=== PATIENT | female | born 1970 | race Caucasian/White ===

== ENCOUNTER 2016-10-09 16:38 | Inpatient (IN) ==
[2016-10-09] MEDS ORDERED: *HR* HYDROmorphone (PF) 1 MG/ML SYRINGE IVP ONE ×3 (16:54→18:42)
[2016-10-09] MEDS ORDERED: Ondansetron 4 MG/2 ML VIAL IVP ONE (16:54)
[2016-10-09] MEDS ORDERED: 0.9 % Sodium Chloride 1,000 ML IVC ONE (16:55)
--- NOTE | 2016-10-09 16:58 | Emergency Department Note ---
Disposition Clinical Impression: Acute pancreatitis Qualifiers: Pancreatitis type: unspecified pancreatitis type Acute pancreatitis complication: unspecified Qualified Code(s): K85.90 - Acute pancreatitis without necrosis or infection, unspecified Disposition: Admitted As Inpatient Condition: Fair Referrals: Ani Hilton CNP [Primary Care Provider] - Forms: Work/School Release, ED Satisfaction Letter Time of Disposition: 17:30 Abdominal Pain HPI - General Chief Complaint: ED Abdominal Pain Stated Complaint: pancreatitis seen last night Time Seen by Provider: 10/09/16 16:44 Source: patient Mode of arrival: ambulatory Limitations: no limitations Nursing Notes Reviewed: Yes Vital Signs Reviewed: Yes - History of Present Illness HPI Narrative: 46-year-old with a history of pancreatitis that is recurrent who comes in with increasing abdominal pain. Patient was essentially seen here last PM left AGAINST MEDICAL ADVICE. She was called back and encouraged to return however she returns tonight with pain. Pt Subjective Complaint: abdominal pain Onset (ago): day(s) Consistency: constant Location: epigastric Pain Scale: 10 Quality: cramping, aching Radiation: back Migration to: no migration Improves with: nothing Worsens with: nothing Associated symptoms: Reports: nausea - Related Data Home Medications Medication Instructions Recorded Confirmed Omeprazole [PriLOSEC] 40 mg PO DAILY 03/31/15 11/29/15 Paroxetine [Paxil] 60 mg PO DAILY 03/31/15 11/29/15 Ondansetron [Zofran] 8 mg PO Q4H PRN 11/29/15 11/29/15 Oxycodone HCl [Roxicodone 30 MG 30 mg PO Q6HR 11/29/15 11/29/15 Immed Release] Oxycodone HCl/Acetaminophen 1 each PO TID PRN 11/29/15 11/29/15 [Percocet 5-325 mg Tablet] Gabapentin 10/07/16 Ibuprofen 10/07/16 Tylenol 10/07/16 Previous Rx's Medication Instructions Recorded Levofloxacin [Levaquin] 500 mg PO DAILY #10 tablet 10/07/16 Ondansetron [Zofran ODT] 8 mg SL TID PRN #12 tab.rapdis 10/07/16 metroNIDAZOLE [Flagyl] 500 mg PO BID #14 tablet 10/07/16 Allergies Allergy/AdvReac Type Severity Reaction Status Date / Time promethazine [From Phenergan] Allergy Seizure Verified 10/07/16 12:55 All systems ED: reviewed and negative except as stated. Constitutional: Denies: fever, chills, weakness, weight change Eyes: Denies: eye pain, eye discharge, vision change ENT ED: Denies: ear pain, throat pain, dental pain, hearing loss, epistaxis, congestion, dysphagia Cardiovascular: Denies: chest pain, palpitations, dyspnea on exertion, edema, syncope Respiratory: Denies: cough, dyspnea, wheezes, hemoptysis, stridor Gastrointestinal: Reports: abdominal pain, nausea. Denies: vomiting, diarrhea, constipation, hematemesis, melena, hematochezia Genitourinary: Denies: dysuria, frequency, hematuria, discharge Musculoskeletal: Denies: back pain, neck pain, arthralgia, myalgia Integumentary: Denies: rash, abrasion, lesions Neurological: Denies: headache, weakness, numbness, paresthesias, confusion, abnormal gait, vertigo Psychiatric: Denies: anxiety, depression, suicidal thoughts, homicidal thoughts , auditory hallucinations, visual hallucinations Endocrine: Denies: fatigue Hematological/Lymphatic: Denies: easy bleeding, easy bruising Allergic/Immunologic: Denies: facial swelling, urticaria Abdominal Pain PMH - Past Medical History Medical history: Reports: GERD, other Female Surgical History: Reports: , cholecystectomy, other MDS NURSE history: Reports: no MDS NURSE history Psychiatric history: Reports: anxiety, bipolar, depression - Social History Smoking status: Current every day smoker Alcohol use: Reports: none Drug use: Reports: none Physical Exam - General Limitations: no limitations General appearance: alert, in no apparent distress - Head Head exam: atraumatic, normocephalic, normal inspection - Eye Eye exam: Present: normal appearance, PERRL, EOMI - ENT ENT exam: normal exam, normal oropharynx, mucous membranes moist - Neck Neck exam: Present: normal inspection, full ROM, trachea midline - Chest Chest inspection: Present: normal inspection, symmetric chest wall rise - Respiratory Respiratory exam: Present: normal lung sounds bilaterally - Cardiovascular Cardiovascular exam: Present: regular rate, normal rhythm, normal heart sounds - Abdominal Exam Abdominal exam: Present: tenderness. Absent: guarding, rebound Abdominal tenderness: Present: epigastrium - Extremities Exam Extremities exam: Present: normal inspection, full ROM. Absent: tenderness, pedal edema - Expanded Lower Extremity Exam Neurovascular/Tendon exam: Absent: motor deficit, sensory deficit, tendon deficit Gait: observed and normal - Back Exam Back exam: Present: normal inspection, full ROM. Absent: tenderness - Neurological Exam Neurological exam: Present: alert, oriented X3 - Psychiatric Psychiatric exam: Present: normal affect, normal mood - Skin Skin exam: Present: warm, dry, intact, normal color Course - Reevaluation(s) Reevaluation #1: 46-year-old comes in with severe pain related to acute on chronic pancreatitis. Patient will be admitted. Time: 17:29 - Consultations Consultation #1: Discussed with Dr. Daniel, admit. Time: 17:29 Vital Signs Temperature 97.6 F 10/09/16 16:39 Pulse Rate 77 10/09/16 16:39 Respiratory Rate 18 10/09/16 16:39 Blood Pressure 144/81 10/09/16 16:39 O2 Sat by Pulse Oximetry 99 10/09/16 16:39 Temperature 97.6 F 10/09/16 16:39 Pulse Rate 77 10/09/16 16:39 Respiratory Rate 18 10/09/16 16:39 Blood Pressure 144/81 10/09/16 16:39 O2 Sat by Pulse Oximetry 99 10/09/16 16:39 Oxygen Delivery Oxygen Delivery Room Air Abdominal Pain - Lab Data Lab results reviewed: Yes I reviewed the patient's lab results. Result diagrams: 10/09/16 17:10 10/09/16 17:10 Lab Results 10/09/16 10/09/16 Range/Units 17:10 17:10 WBC 8.0 (4.3-11.1) K/mcL RBC 3.74 L (3.82-4.97) M/mcL Hgb 12.5 (11.5-15.4) g/dL Hct 37.5 (35.3-44.9) % MCV 100.3 H (83.0-100.0) fL MCH 33.4 H (28.0-33.3) pg MCHC 33.3 (31.6-35.5) g/dL RDW 15.4 H (11.5-14.5) % Plt Count 292 (140-400) K/mcL MPV 9.1 L (9.4-12.4) fL Immature Gran % 0.4 (0-4) % Seg Neutrophils % 57.1 % Lymphocytes % 34.7 % Monocytes % 4.9 % Eosinophils % 2.4 % Basophils % 0.5 % Neutrophils # 4.5 (1.6-8.9) K/mcL Lymphocytes # 2.8 (0.6-4.6) K/mcL Monocytes # 0.4 (0.0-1.3) K/mcL Eosinophils # 0.2 (0.0-0.6) K/mcL Basophils # 0.0 (0.0-0.2) K/mcL Sodium 140 (136-145) mEq/L Potassium 3.1 L (3.5-4.5) mEq/L Chloride 112 H (98-109) mEq/L Carbon Dioxide 19 (19-29) mEq/L BUN 2 L (7-20) mg/dL Creatinine 0.54 L (0.57-1.11) mg/dL Est GFR ( Amer) > 60 (> 60) Est GFR (Non-Af Amer) > 60 (> 60) BUN/Creatinine Ratio 4 L (6-26) Glucose 114 H (70-99) mg/dL Calculated Osmolality 287 (280-300) Calcium 8.5 L (8.6-10.8) mg/dL Total Bilirubin 0.5 (0.2-1.2) mg/dL Direct Bilirubin 0.3 (0.0-0.5) mg/dL Indirect Bilirubin 0.2 (0.0-1.2) mg/dL AST 64 H (5-34) Units/L ALT 129 H (0-55) Units/L Alkaline Phosphatase 314 H (38-126) Units/L Serum Total Protein 6.1 (6.0-8.3) g/dL Albumin 2.6 L (3.5-5.0) g/dL Globulin 3.5 (2.4-3.5) g/dL Albumin/Globulin Ratio 0.7 L (1.1-2.2) Amylase 19 L (25-125) Units/L Lipase < 10 (8-78) Units/L
[2016-10-09 17:16] LABS: Basophils % 0.5 %; Eosinophils # 0.2 K/mcL (0.0-0.6); Eosinophils % 2.4 %; Hematocrit 37.5 % (35.3-44.9); Hemoglobin 12.5 g/dL (11.5-15.4); Immature Granulocytes % 0.4 % (0-4); Lymphocytes # 2.8 K/mcL (0.6-4.6); Lymphocytes % 34.7 %; Mean Corpuscular HGB Conc 33.3 g/dL (31.6-35.5); Mean Corpuscular Hemoglobin 33.4 pg (28.0-33.3); Mean Corpuscular Volume 100.3 fL (83.0-100.0); Mean Platelet Volume 9.1 fL (9.4-12.4); Monocytes # 0.4 K/mcL (0.0-1.3); Monocytes % 4.9 %; Neutrophils # 4.5 K/mcL (1.6-8.9); Platelet Count 292 K/mcL (140-400); Red Blood Count 3.74 M/mcL (3.82-4.97); Red Cell Distribution Width 15.4 % (11.5-14.5); Segmented Neutrophils % 57.1 %
[2016-10-09 17:30] LABS: Alanine Aminotransferase 129 Units/L (0-55); Albumin 2.6 g/dL (3.5-5.0); Albumin/Globulin Ratio 0.7 (1.1-2.2); Alkaline Phosphatase 314 Units/L (38-126); Amylase 19 Units/L (25-125); Aspartate Amino Transferase 64 Units/L (5-34); BUN/Creatinine Ratio 4 (6-26); Bilirubin,Direct 0.3 mg/dL (0.0-0.5); Bilirubin,Indirect 0.2 mg/dL (0.0-1.2); Bilirubin,Total 0.5 mg/dL (0.2-1.2); Calcium 8.5 mg/dL (8.6-10.8); Carbon Dioxide 19 mEq/L (19-29); Chloride 112 mEq/L (98-109); Globulin 3.5 g/dL (2.4-3.5); Glucose 114 mg/dL (70-99); Osmolality,Calculated 287 (280-300); Potassium 3.1 mEq/L (3.5-4.5); Sodium 140 mEq/L (136-145); Total Protein 6.1 g/dL (6.0-8.3); eGFR For African Americans > 60 (> 60); eGFR For Non-African Americans > 60 (> 60)
[2016-10-09 17:33] LABS: Blood Urea Nitrogen 2 mg/dL (7-20); Lipase < 10 Units/L (8-78)
[2016-10-09] MEDS ORDERED: Ondansetron ODT 4 MG TAB.RAPDIS PO PRN (20:57)
[2016-10-09] MEDS ORDERED: Naloxone 0.4 MG/ML INJ IVP PRN (20:58)
[2016-10-09] MEDS ORDERED: *HR* Morphine 2 MG/ML SYRINGE IVP PRN (20:58)
[2016-10-09] MEDS ORDERED: *HR* HYDROmorphone (PF) 1 MG/ML SYRINGE IVP PRN (20:58)
--- NOTE | 2016-10-09 21:06 | Internal Med History&Physical ---
Date of Encounter: 10/09/16 Time of Encounter: 21:04 Assessment and Plan (1) Acute on chronic pancreatitis Current visit: No Status: Acute IVF, IV morphine,dilaudid for pain, NPO for now, follow symptoms, (positive pain and positive abdominal imaging of acute pancreatitis) (2) GERD (gastroesophageal reflux disease) Current visit: No Status: Chronic continue med Qualifiers: Esophagitis presence: esophagitis presence not specified Qualified Code(s) : K21.9 - Gastro-esophageal reflux disease without esophagitis (3) Oral thrush Current visit: No Status: Acute partially treated, continue fluconazole, check HIV - consent provided by patient Internal Medicine - H&P: HPI Chief complaint: abdo pain History of present illness: Ms. Chi is a 46 year old female who presents with acute on chronic pancreatitis flare. She reported 1 week hx of worsening abdominal pain associated with anorexia and decreased PO intake, nausea. Pain in the epigastric region, described as stabbing with radiation to the back, rated 10/ 10. She was seen in the ED yesterday but because of the long wait for bed, left AMA. She came in here for persistent and worsening symptoms. She denies a hx of alcholism. On review, she reports that she was seen at local urgent care with prescription of a course of diflucan for oral thrush - tongue white. She has taken 2 days of the medication. Past Med Surg Social Fam HX - Past Medical History Medical history: GERD, other Psychiatric history: anxiety, bipolar, depression - Past Surgical History Surgical History: , cholecystectomy - Social History Smoking Status: Current every day smoker Packs per day: 3 Smokeless Tobacco Status: No Alcohol use: none Drug use: none - Family History Father Adopted: No Family Member Ethnicity: Non- Living Status: Mother Adopted: No Family Member Ethnicity: Non- Living Status: Still Living Hx Family Cardiac Disorders: Yes Hx Family Respiratory Disorders: No Hx Family Cancer: No Hx Family GI Disorders: No Hx Family Endocrine Disorder: Yes Hx Family Neuromuscular Disorders: No Internal Medicine - H&P: Meds Omeprazole [PriLOSEC] 40 mg PO DAILY 03/31/15 [History] Paroxetine [Paxil] 60 mg PO DAILY 03/31/15 [History] Ondansetron [Zofran] 8 mg PO Q6H PRN 11/29/15 [History] Gabapentin [Neurontin] 800 mg PO TID 10/07/16 [History] Levofloxacin [Levaquin] 500 mg PO DAILY #10 tablet 10/07/16 [Rx] metroNIDAZOLE [Flagyl] 500 mg PO BID #14 tablet 10/07/16 [Rx] Albuterol Sulfate [Ventolin Hfa] 2 puff IH Q4H PRN 10/09/16 [History] Ascorbate Calcium [Vitamin C] 500 mg PO DAILY 10/09/16 [History] Pramipexole [Mirapex] 2 mg PO HS PRN 10/09/16 [History] Ranitidine HCl [Acid Case Management Assistant] 150 mg PO HS 10/09/16 [History] Allergies promethazine [From Phenergan] Allergy (Verified 10/07/16 12:55) Seizure All Systems PM: A 10-system review of systems was performed and is negative for pertinent findings except as documented above in the HPI. Review of systems: ROS 14 point review of systems reviewed as best as possible given presentation. Pertinent positive or negative as per HPI or otherwise reviewed as negative - Constitutional Vitals: Temp Pulse Resp BP Pulse Ox 97.9 F 90 16 127/75 96 10/09/16 20:13 10/09/16 20:13 10/09/16 20:13 10/09/16 20:13 10/09/16 20:13 Exam: General - AAO x 3 Psych - Appropriate affect/speech. No agitation Eyes - JOSUE. Eye lids intact. No scleral icterus ENT - Oral mucosa pink, dentition intact. External ear clear/dry/intact. No thyromegaly Lymphatics - No cervical/inguinal lympadenopathy Neuro - No gross peripheral or central neuro deficits with intact CN 2-12 exam Heart - Sinus. RRR. S1 and S2 present. No added HS/murmurs appreciated. No elevated JVD appreciated. No calf swellings/erythema Lung - Adequate air entry b/l, No crackes/wheezes appreciated GI - epigastric pain, guarding on palpation. No hepatosplenomegaly/ascites. BS+ - No CVA/suprapubic tenderness or palpable bladder distension Skin - Intact. No rash/petechiae/ecchymosis. Warm extremities MSK - Joints with normal ROM. No joint swellings Internal Med - H&P Results - Labs CBC & Chem 7: 10/09/16 17:10 10/09/16 17:10
[2016-10-09] MEDS: Gabapentin 400 MG CAPSULE PO SCH (21:25)
[2016-10-09] MEDS: Famotidine 20 MG TABLET PO SCH (21:26)
[2016-10-09] MEDS: Ringers Solution, Lactated 1,000 ML IVC SCH (21:27)
[2016-10-09] MEDS: Nicotine 21 MG PATCH.TD24 TD SCH (21:31)
[2016-10-09] MEDS: *HR* Morphine 2 MG/ML SYRINGE IVP PRN (22:26)
[2016-10-10] MEDS: *HR* HYDROmorphone (PF) 1 MG/ML SYRINGE IVP PRN ×3 (01:53→10:16)
[2016-10-10] MEDS: Ondansetron 4 MG/2 ML VIAL IVP PRN ×2 (01:58→10:24)
[2016-10-10] MEDS: Ringers Solution, Lactated 1,000 ML IVC SCH ×3 (03:50→17:28)
[2016-10-10] MEDS: *HR* Morphine 2 MG/ML SYRINGE IVP PRN ×2 (03:51→08:02)
[2016-10-10] MEDS ORDERED: *HR* Enoxaparin 30 MG/0.3 ML SYRINGE SQ SCH (06:00)
[2016-10-10 08:07] LABS: Basophils % 0.4 %; Eosinophils # 0.3 K/mcL (0.0-0.6); Hematocrit 35.7 % (35.3-44.9); Hemoglobin 12.3 g/dL (11.5-15.4); Immature Granulocytes % 0.8 % (0-4); Lymphocytes # 2.1 K/mcL (0.6-4.6); Lymphocytes % 27.4 %; Mean Corpuscular HGB Conc 34.5 g/dL (31.6-35.5); Mean Corpuscular Hemoglobin 34.5 pg (28.0-33.3); Mean Platelet Volume 9.7 fL (9.4-12.4); Monocytes # 0.2 K/mcL (0.0-1.3); Platelet Count 283 K/mcL (140-400); Red Blood Count 3.57 M/mcL (3.82-4.97); Red Cell Distribution Width 15.7 % (11.5-14.5); Segmented Neutrophils % 64.4 %
[2016-10-10 08:09] LABS: BUN/Creatinine Ratio 4 (6-26); Calcium 8.5 mg/dL (8.6-10.8); Carbon Dioxide 21 mEq/L (19-29); Chloride 111 mEq/L (98-109); Glucose 86 mg/dL (70-99); Magnesium 1.6 mg/dL (1.6-2.6); Osmolality,Calculated 285 (280-300); Potassium 3.5 mEq/L (3.5-4.5); Sodium 140 mEq/L (136-145); eGFR For African Americans > 60 (> 60); eGFR For Non-African Americans > 60 (> 60)
[2016-10-10 08:12] LABS: Blood Urea Nitrogen < 2 mg/dL (7-20)
[2016-10-10] MEDS: Fluconazole 100 MG TABLET PO SCH (09:26)
[2016-10-10] MEDS: Gabapentin 400 MG CAPSULE PO SCH ×3 (09:26→20:08)
[2016-10-10] MEDS: Nicotine 21 MG PATCH.TD24 TD SCH (09:30)
[2016-10-10] MEDS ORDERED: *HR* HYDROmorphone (PF) 1 MG/ML SYRINGE IVP PRN (10:22)
[2016-10-10] MEDS ORDERED: Naloxone 0.4 MG/ML INJ IVP PRN (11:32)
[2016-10-10] MEDS ORDERED: Ondansetron 4 MG/2 ML VIAL IVP PRN (11:33)
[2016-10-10] MEDS ORDERED: *HR* Morphine 2 MG/ML SYRINGE IVP ONE ×2 (12:23→21:28)
[2016-10-10] MEDS: *HR* Morphine 30 MG/ 30 ML PCA IVC PRN ×2 (12:32→19:46)
[2016-10-10] MEDS ORDERED: Acetaminophen 325 MG TABLET PO ONE (15:45)
[2016-10-10] MEDS: Famotidine 20 MG TABLET PO SCH (20:08)
[2016-10-10] MEDS ORDERED: *HR* Morphine 30 MG/ 30 ML PCA IVC PRN (21:29)
--- NOTE | 2016-10-10 22:20 | Internal Med Progress Note ---
Date of Encounter: 10/10/16 Time of Encounter: 10:20 - Assessment and plan (1) Pancreatitis Current Visit: Yes Status: Acute Assessment and plan: Pain control. 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 Clear liquids if able. Qualifiers: Chronicity: acute Pancreatitis type: unspecified pancreatitis type Acute pancreatitis complication: no infection or necrosis Qualified Code(s): K85.90 - Acute pancreatitis without necrosis or infection, unspecified (2) GERD (gastroesophageal reflux disease) Current Visit: No Status: Chronic Assessment and plan: Supportive care Qualifiers: Esophagitis presence: without esophagitis Qualified Code(s): K21.9 - Gastro -esophageal reflux disease without esophagitis (3) Oral thrush Current Visit: No Status: Acute Assessment and plan: Diflucan (4) Abdominal pain Current Visit: No Status: Acute Assessment and plan: Pain management. Qualifiers: Abdominal location: epigastric Qualified Code(s): R10.13 - Epigastric pain - Subjective Interval history: Ms. Chi is currently admitted for acute on chronic pancreatitis. She remains moderate to high risk due to need for IV meds and persistent pain. Ms. Chi continues to have pain and nausea. Meds not lasting long. No fever or chills. No diarrhea. - Constitutional Vitals: Temp Pulse Resp BP Pulse Ox 98.4 F 82 16 131/74 97 10/10/16 20:11 10/10/16 20:11 10/10/16 20:11 10/10/16 20:11 10/10/16 20:11 General appearance: Present: A&O X 3, severe distress - Head Head exam: Present: normocephalic - Eye Eye exam: Present: conjuntiva pink - ENT ENT exam: Present: mucous membranes dry - Respiratory Respiratory exam: Present: CTAB. Absent: rhonchi, wheezes - Cardiovascular Cardiovascular exam: Present: RRR. Absent: tachycardia - GI/Abdominal GI/Abdominal exam: Present: soft, tenderness - Extremities Exam Extremities exam: Present: warm. Absent: pedal edema - Neurological Exam Neurological exam: Present: alert, oriented X3, no focal deficits - Skin Skin exam: Present: dry, warm Internal Medicine: Result - Labs CBC & Chem 7: 10/10/16 07:31 10/10/16 07:31 Labs: Short CBC 10/10/16 Range/Units 07:31 WBC 7.8 (4.3-11.1) K/mcL Hgb 12.3 (11.5-15.4) g/dL Hct 35.7 (35.3-44.9) % Plt Count 283 (140-400) K/mcL Neutrophils # 5.0 (1.6-8.9) K/mcL BMP 10/10/16 07:31 Sodium 140 Potassium 3.5 Chloride 111 H Carbon Dioxide 21 BUN < 2 L Creatinine 0.49 L Glucose 86 Calcium 8.5 L Consult Discharge Plan - Plan Referrals: Ani Hilton, ROOM SERVICE [employer] [Primary Care Provider] -
[2016-10-11] MEDS: Ringers Solution, Lactated 1,000 ML IVC SCH (01:23)
[2016-10-11 04:19] LABS: Hematocrit 36.1 % (35.3-44.9); Mean Corpuscular HGB Conc 33.2 g/dL (31.6-35.5); Mean Corpuscular Volume 102.3 fL (83.0-100.0); Mean Platelet Volume 9.5 fL (9.4-12.4); Platelet Count 296 K/mcL (140-400); Red Blood Count 3.53 M/mcL (3.82-4.97); Red Cell Distribution Width 16.1 % (11.5-14.5)
[2016-10-11 04:32] LABS: Alanine Aminotransferase 136 Units/L (0-55); Albumin 2.8 g/dL (3.5-5.0); Albumin/Globulin Ratio 0.8 (1.1-2.2); Alkaline Phosphatase 638 Units/L (38-126); Aspartate Amino Transferase 132 Units/L (5-34); BUN/Creatinine Ratio 3 (6-26); Carbon Dioxide 29 mEq/L (19-29); Chloride 108 mEq/L (98-109); Globulin 3.7 g/dL (2.4-3.5); Glucose 120 mg/dL (70-99); Magnesium 1.8 mg/dL (1.6-2.6); Osmolality,Calculated 297 (280-300); Potassium 3.4 mEq/L (3.5-4.5); Sodium 145 mEq/L (136-145); Total Protein 6.5 g/dL (6.0-8.3); eGFR For African Americans > 60 (> 60); eGFR For Non-African Americans > 60 (> 60)
[2016-10-11 04:44] LABS: Bilirubin,Total 0.8 mg/dL (0.2-1.2); Blood Urea Nitrogen 2 mg/dL (7-20)
[2016-10-11] MEDS ORDERED: *HR* Enoxaparin 40 MG/0.4 ML SYRINGE SQ SCH (06:00)
--- NOTE | 2016-10-11 06:49 | Event Note ---
Date of Encounter: 10/11/16 Time of Encounter: 06:48 Informed at 644 AM that patient had briskly left AMA. Did not wish to sign paper work.
[2016-10-11] MEDS: Nicotine 21 MG PATCH.TD24 TD SCH (08:54)
[2016-10-11] MEDS: Gabapentin 400 MG CAPSULE PO SCH (08:54)
[2016-10-11] MEDS: Fluconazole 100 MG TABLET PO SCH (08:54)
[2016-10-11 10:40] VITALS: BP 143/77
[2016-10-11] MEDS ORDERED: *HR* OxyCODONE/APAP 5/325 TABLET PO ONE (12:42)
[2016-10-11] MEDS ORDERED: *HR* Morphine 2 MG/ML SYRINGE IVP PRN (12:49)
[2016-10-11] MEDS ORDERED: *HR* OxyCODONE/APAP 5/325 TABLET PO PRN (12:50)
--- NOTE | 2016-10-11 13:14 | Discharge Summary ---
Date of Encounter: 10/11/16 Time of Encounter: 11:00 - Discharge Diagnosis (1) Pancreatitis Priority: Primary Status: Acute Qualifiers: Chronicity: acute Pancreatitis type: other Acute pancreatitis complication: no infection or necrosis Qualified Code(s): K85.80 - Other acute pancreatitis without necrosis or infection (2) GERD (gastroesophageal reflux disease) Priority: Secondary Status: Chronic Qualifiers: Esophagitis presence: without esophagitis Qualified Code(s): K21.9 - Gastro -esophageal reflux disease without esophagitis (3) Oral thrush Priority: Secondary Status: Acute (4) Abdominal pain Priority: Primary Status: Acute Qualifiers: Abdominal location: epigastric Qualified Code(s): R10.13 - Epigastric pain (5) Transaminitis Priority: Secondary Status: Chronic (6) Tobacco abuse Priority: Secondary Status: Chronic Comments: Cessation counselling - Discharge Medications Home Medications: Omeprazole [PriLOSEC] 40 mg PO DAILY 03/31/15 [History] Paroxetine [Paxil] 60 mg PO DAILY 03/31/15 [History] Ondansetron [Zofran] 8 mg PO Q6H PRN 11/29/15 [History] Gabapentin [Neurontin] 800 mg PO TID 10/07/16 [History] Albuterol Sulfate [Ventolin Hfa] 2 puff IH Q4H PRN 10/09/16 [History] Ascorbate Calcium [Vitamin C] 500 mg PO DAILY 10/09/16 [History] Pramipexole [Mirapex] 2 mg PO HS PRN 10/09/16 [History] Ranitidine HCl [Acid Medical Doctor Nuclear Medicine] 150 mg PO HS 10/09/16 [History] Calcium Carbonate [Tums] 500 mg PO DAILY 10/11/16 [Rx] Nicotine Patch [Nicoderm] 21 mg TD DAILY 10/11/16 [Rx] OxyCODONE/APAP 5/325 [Percocet 5/325 MG] 1 each PO Q4HR PRN tab 10/11/16 [Rx] Allergies/Adverse Reactions: Allergies promethazine [From Phenergan] Allergy (Verified 10/07/16 12:55) Seizure Date of admission: 10/09/16 20:58 Primary care physician: Ani Hilton CNP Discharging clinician: Obey Viera date of discharge: 10/11/16 - Patient Status Disposition: Left Against Medical Advice Condition: Fair Functional capacity at discharge: independent ambulation Overall status at discharge: patient is progressing back to baseline - Discharge Instructions Follow Up With: Ani Hilton, RECREATIONAL VEHICLE RESORT MANAGER [Primary Care Provider] - - Diet and Activity Activity: increase activity as tolerated Diet: advance to your usual diet Hospital course: Ms. Chi is a 46 year old female with a history of recurrent pancreatitis presented to ED with abdominal pain. She was presumed to have acute on chronic pancreatitis and CT was consistent with this. She was admitted for further evaluation and treatment. Ms. Chi was admitted to [facility]. She was NPO and placed on antiemetics and pain medications. In the AM of 10/10 she was very uncomfortable. 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 During the night she was found to be eating chips and at that time she left the floor "AMA" but returned shortly after. In the AM of 10/11 she was able to tolerate some PO. She was ordered to be taken of the STOPPING BUILDER and started on PO pain meds. Before this could be done she left the floor and would not sign AMA papers. She was discharged AMA at that time. - Time Spent with Patient Total time spent providing and/or coordinating discharge services: 41min - Constitutional Vitals: Temp Pulse Resp BP Pulse Ox 98.3 F 68 16 143/77 97 10/11/16 10:37 10/11/16 10:37 10/11/16 10:37 10/11/16 10:37 10/11/16 10:37 General appearance: Present: A&O X 3, severe distress, answers questions appropriately - Head Head exam: Present: normocephalic - Eye Eye exam: Present: EOMI, conjuntiva pink - ENT ENT exam: Present: normal exam - Respiratory Respiratory exam: Present: CTAB. Absent: rhonchi, wheezes - Cardiovascular Cardiovascular exam: Present: RRR. Absent: tachycardia - GI/Abdominal GI/Abdominal exam: Present: soft, tenderness Additional comments: Diffuse tenderness without peritoneal signs. - Extremities Exam Extremities exam: Present: warm. Absent: pedal edema - Neurological Exam Neurological exam: Present: alert, oriented X3 - Skin Skin exam: Present: warm. Absent: rash
== END 2016-10-11 12:59 | disposition left against medical advice (07) | DRG 282 ==
LOC: EMEROO 16:38 → 3ANU 16:38 → SUATTDRO 20:58
PROVIDERS: ADMIT Internal Medicine Endocrinology, Diabetes & Metabolism; ATTEND Internal Medicine

== ENCOUNTER 2016-10-14 15:50 | Observation (INO) ==
[2016-10-14] MEDS ORDERED: Ondansetron 4 MG/2 ML VIAL IVP ONE ×2 (16:30→19:06)
--- NOTE | 2016-10-14 16:31 | Emergency Department Note ---
Disposition Clinical Impression: Pancreatitis Qualifiers: Chronicity: acute Pancreatitis type: other Acute pancreatitis complication: unspecified Qualified Code(s): K85.80 - Other acute pancreatitis without necrosis or infection Disposition: Admitted As Inpatient Condition: Fair General Adult HPI - General Chief complaint: ED Abdominal Pain Stated complaint: ABD PAIN Time Seen by Provider: 10/14/16 15:57 Source: patient Limitations: no limitations Nursing Notes Reviewed: Yes Vital Signs Reviewed: Yes - History of Present Illness HPI Narrative: Patient is a 46-year-old female past medical history of chronic pancreatitis she left the hospital AMA 5 days ago on being treated inpatient for her acute on chronic pancreatitis. She is complaining of epigastric abdominal pain radiating to her back. Patient states that she feels like it is her pancreatitis pain. She states she also feels that she has had fevers and chills. Pain Scale: 10 - Related Data Home Medications Medication Instructions Recorded Confirmed Omeprazole [PriLOSEC] 40 mg PO DAILY 03/31/15 10/14/16 Paroxetine [Paxil] 60 mg PO DAILY 03/31/15 10/14/16 Ondansetron [Zofran] 8 mg PO Q6H PRN 11/29/15 10/14/16 Gabapentin [Neurontin] 800 mg PO TID 10/07/16 10/14/16 Albuterol Sulfate [Ventolin Hfa] 2 puff IH Q4H PRN 10/09/16 10/14/16 Ascorbate Calcium [Vitamin C] 500 mg PO DAILY 10/09/16 10/14/16 Pramipexole [Mirapex] 2 mg PO HS PRN 10/09/16 10/14/16 Ranitidine HCl [Acid Lipstick Molder] 150 mg PO HS 10/09/16 10/14/16 Previous Rx's Medication Instructions Recorded Calcium Carbonate [Tums] 500 mg PO DAILY 10/11/16 Nicotine Patch [Nicoderm] 21 mg TD DAILY 10/11/16 OxyCODONE/APAP 5/325 [Percocet 1 each PO Q4HR PRN tab 10/11/16 5/325 MG] Allergies Allergy/AdvReac Type Severity Reaction Status Date / Time promethazine [From Phenergan] Allergy Seizure Verified 10/07/16 12:55 All systems ED: reviewed and negative except as stated. Constitutional: Reports: fever, chills Cardiovascular: Denies: chest pain, palpitations, dyspnea on exertion Respiratory: Denies: cough, dyspnea, wheezes Gastrointestinal: Reports: abdominal pain, nausea, vomiting. Denies: diarrhea, constipation, hematemesis, melena, hematochezia Genitourinary: Denies: urgency, dysuria, frequency, hematuria Musculoskeletal: Reports: back pain. Denies: neck pain Integumentary: Denies: rash Past Medical History - Past Medical History Medical history: Reports: asthma, GERD, peripheral artery disease, other Surgical history: Reports: , cholecystectomy Psychiatric history: Reports: anxiety, bipolar, depression DIE CAST DIE MAKER history: Reports: no DIE CAST DIE MAKER history - Social History Smoking Status: Current every day smoker Smokeless Tobacco Status: No Alcohol use: Reports: rarely Drug use: Reports: none Physical Exam - General Limitations: no limitations General appearance: alert, other (Appears to have moderate abdominal pain. She is alert and oriented 3 and speaks in full sentences.) - Head Head exam: atraumatic, normocephalic, normal inspection - Eye Eye exam: Present: normal appearance, PERRL, EOMI - ENT ENT exam: normal exam, normal oropharynx, mucous membranes dry - Chest Chest inspection: Present: normal inspection, symmetric chest wall rise. Absent : tenderness - Respiratory Respiratory exam: Present: normal lung sounds bilaterally. Absent: respiratory distress, wheezes - Cardiovascular Cardiovascular exam: Present: regular rate, normal rhythm, normal heart sounds - Abdominal Exam Abdominal exam: Present: soft, tenderness, normal bowel sounds. Absent: distention, guarding, rebound, rigidity Abdominal tenderness: Present: epigastrium - Extremities Exam Extremities exam: Present: normal inspection, full ROM. Absent: tenderness - Expanded Lower Extremity Exam Neurovascular/Tendon exam: Present: normal capillary refill. Absent: pulse deficit - Back Exam Back exam: Present: normal inspection, full ROM. Absent: tenderness - Neurological Exam Neurological exam: Present: alert, oriented X3 - Psychiatric Psychiatric exam: Present: normal affect, normal mood - Skin Skin exam: Present: warm, dry, intact, normal color Course Course Narrative: This patient was recently left AMA from the hospital on October [id number] she is being treated for the same pain with NPO and IV fluids and pain medications. The patient states she left because she felt she was not being treated appropriately. Patient was also seen recently in the emergency department by Dr. Euceda when he states that the patient had a elevated alkaline phosphatase she also left AMA at this visit. Therefore I will add on a gallbladder ultrasound to the patient's workup. I ordered a lipase, CBC, and chem panel on this patient and a urinalysis. I do not think it is justified to order a CT of her abdomen and pelvis to expose the patient to further radiation when she is presenting for the same symptoms that she was already worked up for 5 days ago. - Reevaluation(s) Reevaluation #1: Reviewed the lab results with the patient. Also reviewed her liver ultrasound with her as well. The patient states she is unable to tolerate fluids states it upsets her stomach however she has not had nausea or vomiting. She states she would like to be readmitted for her abdominal pain. Time: 19:25 Reevaluation #2: I spoke with Dr. Crowell and he agrees to admit the patient. Requested we start another normal saline bolus. Time: 20:06 Vital Signs Temperature 98.4 F 10/14/16 15:53 Pulse Rate 89 10/14/16 15:53 Respiratory Rate 16 10/14/16 15:53 Blood Pressure 130/78 10/14/16 15:53 O2 Sat by Pulse Oximetry 96 10/14/16 15:53 Temperature 98.4 F 10/14/16 20:48 Pulse Rate 81 10/14/16 20:48 Respiratory Rate 18 10/14/16 20:48 Blood Pressure 147/83 10/14/16 20:48 O2 Sat by Pulse Oximetry 96 10/14/16 20:48 Oxygen Delivery Oxygen Delivery Room Air Medical Decision Making - Medical Records Medical records reviewed: Yes I reviewed the patient's medical records. - Lab Data Lab results reviewed: Yes I reviewed the patient's lab results. Result diagrams: 10/14/16 17:12 10/14/16 17:12 Lab Results 10/14/16 10/14/16 10/14/16 Range/Units 16:37 17:12 17:12 WBC 9.1 (4.3-11.1) K/mcL RBC 3.58 L (3.82-4.97) M/mcL Hgb 12.4 (11.5-15.4) g/dL Hct 37.4 (35.3-44.9) % MCV 104.5 H (83.0-100.0) fL MCH 34.6 H (28.0-33.3) pg MCHC 33.2 (31.6-35.5) g/dL RDW 16.9 H (11.5-14.5) % Plt Count 356 (140-400) K/mcL MPV 9.2 L (9.4-12.4) fL Immature Gran % 0.7 (0-4) % Seg Neutrophils % 63.6 % Lymphocytes % 29.0 % Monocytes % 5.1 % Eosinophils % 1.2 % Basophils % 0.4 % Neutrophils # 5.8 (1.6-8.9) K/mcL Lymphocytes # 2.7 (0.6-4.6) K/mcL Monocytes # 0.5 (0.0-1.3) K/mcL Eosinophils # 0.1 (0.0-0.6) K/mcL Basophils # 0.0 (0.0-0.2) K/mcL Sodium 138 (136-145) mEq/L Potassium 3.5 (3.5-4.5) mEq/L Chloride 110 H (98-109) mEq/L Carbon Dioxide 20 (19-29) mEq/L BUN 4 L (7-20) mg/dL Creatinine 0.57 (0.57-1.11) mg/dL Est GFR ( Amer) > 60 (> 60) Est GFR (Non-Af Amer) > 60 (> 60) BUN/Creatinine Ratio 7 (6-26) Glucose 91 (70-99) mg/dL Calculated Osmolality 282 (280-300) Lactic Acid (0.5-2.2) mmol/L Calcium 8.4 L (8.6-10.8) mg/dL Total Bilirubin 0.5 (0.2-1.2) mg/dL Direct Bilirubin 0.3 (0.0-0.5) mg/dL Indirect Bilirubin 0.2 (0.0-1.2) mg/dL AST 18 (5-34) Units/L ALT 47 (0-55) Units/L Alkaline Phosphatase 387 H (38-126) Units/L Serum Total Protein 5.9 L (6.0-8.3) g/dL Albumin 2.7 L (3.5-5.0) g/dL Globulin 3.2 (2.4-3.5) g/dL Albumin/Globulin Ratio 0.8 L (1.1-2.2) Lipase 15 (8-78) Units/L Urine Color Yellow (Yellow) Urine Clarity Clear (Clear) Urine pH 6.0 (5.0-8.0) pH Units Ur Specific Gloster 1.014 (1.010-1.025) Urine Protein Negative (Neg-Trace) mg/dL Urine Glucose (UA) Normal (Normal) mg/dL Urine Ketones Negative (Negative) mg/dL Urine Blood Negative (Negative) Urine Nitrite Negative (Negative) Urine Bilirubin Negative (Negative) Urine Urobilinogen Normal (Normal) mg/dL Ur Leukocyte Esterase Small H (Negative) Urine Microscopic RBC 0-3 (0-3) per hpf Urine Microscopic WBC 5-15 H (0-3) per hpf Ur Squamous Epith Cells Many H (None-Few) per lpf Urine Bacteria None Seen (None-Few) per hpf Hyaline Casts None Seen (None-Few) per lpf Ur Culture Indicated? YES A (NO) Ethyl Alcohol < 10 (0-10) mg/dL 10/14/ Range/Units 17:12 WBC (4.3-11.1) K/mcL RBC (3.82-4.97) M/mcL Hgb (11.5-15.4) g/dL Hct (35.3-44.9) % MCV (83.0-100.0) fL MCH (28.0-33.3) pg MCHC (31.6-35.5) g/dL RDW (11.5-14.5) % Plt Count (140-400) K/mcL MPV (9.4-12.4) fL Immature Gran % (0-4) % Seg Neutrophils % % Lymphocytes % % Monocytes % % Eosinophils % % Basophils % % Neutrophils # (1.6-8.9) K/mcL Lymphocytes # (0.6-4.6) K/mcL Monocytes # (0.0-1.3) K/mcL Eosinophils # (0.0-0.6) K/mcL Basophils # (0.0-0.2) K/mcL Sodium (136-145) mEq/L Potassium (3.5-4.5) mEq/L Chloride (98-109) mEq/L Carbon Dioxide (19-29) mEq/L BUN (7-20) mg/dL Creatinine (0.57-1.11) mg/dL Est GFR ( Amer) (> 60) Est GFR (Non-Af Amer) (> 60) BUN/Creatinine Ratio (6-26) Glucose (70-99) mg/dL Calculated Osmolality (280-300) Lactic Acid 1.2 (0.5-2.2) mmol/L Calcium (8.6-10.8) mg/dL Total Bilirubin (0.2-1.2) mg/dL Direct Bilirubin (0.0-0.5) mg/dL Indirect Bilirubin (0.0-1.2) mg/dL AST (5-34) Units/L ALT (0-55) Units/L Alkaline Phosphatase (38-126) Units/L Serum Total Protein (6.0-8.3) g/dL Albumin (3.5-5.0) g/dL Globulin (2.4-3.5) g/dL Albumin/Globulin Ratio (1.1-2.2) Lipase (8-78) Units/L Urine Color (Yellow) Urine Clarity (Clear) Urine pH (5.0-8.0) pH Units Ur Specific Gloster (1.010-1.025) Urine Protein (Neg-Trace) mg/dL Urine Glucose (UA) (Normal) mg/dL Urine Ketones (Negative) mg/dL Urine Blood (Negative) Urine Nitrite (Negative) Urine Bilirubin (Negative) Urine Urobilinogen (Normal) mg/dL Ur Leukocyte Esterase (Negative) Urine Microscopic RBC (0-3) per hpf Urine Microscopic WBC (0-3) per hpf Ur Squamous Epith Cells (None-Few) per lpf Urine Bacteria (None-Few) per hpf Hyaline Casts (None-Few) per lpf Ur Culture Indicated? (NO) Ethyl Alcohol (0-10) mg/dL - Radiology Data Radiology results reviewed: Yes I reviewed the patient's radiology results. Liver Ultrasound 10/14/16 17:16 IMPRESSION: Prior cholecystectomy. Stable mild common duct dilation 1.1 cm. D/ / Reinaldo Land MD / Reinaldo Land MD Interpreting Provider: Reinaldo Land MD Attestation Statement - Attestation Attestation: I examined this patient and my medical decision-making was reviewed with the Resident Physician. I agree with the documented findings, disposition and treatment plan as described except to the extent set forth below. Female patient with chronic pancreatitis status post cholecystectomy. She did have evidence of elevated alkaline phosphatase. She does not a history of recurring a local elopement. She is here requesting pain control. Ultimately we performed a ultrasound to rule out choledocholithiasis. There is no evidence of choledocholithiasis at this time. The patient has no history of hyper- triglyceridemia. The patient be admitted the hospital for further evaluation pain control she cannot tolerate by mouth in for evaluation of chronic pancreatitis as well as chronic pain control.
[2016-10-14 16:45] LABS: Bilirubin,Urine Negative (Negative); Blood,Urine Negative (Negative); Clarity,Urine Clear (Clear); Color,Urine Yellow (Yellow); Glucose,Urine (UA) Normal (Normal); Ketones,Urine Negative (Negative); Leukocyte Esterase,Urine Small (Negative); Nitrite,Urine Negative (Negative); Protein,Urine Negative (Neg-Trace); Specific Gravity,Urine 1.014 (1.010-1.025); Urobilinogen,Urine Normal (Normal)
[2016-10-14 16:47] LABS: Bacteria,Urine None Seen per hpf (None-Few); Hyaline Casts,Urine None Seen per lpf (None-Few); RBC,Urine 0-3 per hpf (0-3); Squamous Epithelial Cell,Urine Many per lpf (None-Few)
[2016-10-14] MEDS ORDERED: *HR* HYDROmorphone (PF) 1 MG/ML SYRINGE IVP ONE ×2 (16:47→19:06)
[2016-10-14] MEDS ORDERED: 0.9 % Sodium Chloride 1,000 ML IVC ONE ×2 (16:48→19:59)
[2016-10-14 17:39] LABS: Basophils % 0.4 %; Eosinophils # 0.1 K/mcL (0.0-0.6); Eosinophils % 1.2 %; Hematocrit 37.4 % (35.3-44.9); Hemoglobin 12.4 g/dL (11.5-15.4); Immature Granulocytes % 0.7 % (0-4); Lymphocytes # 2.7 K/mcL (0.6-4.6); Mean Corpuscular HGB Conc 33.2 g/dL (31.6-35.5); Mean Corpuscular Hemoglobin 34.6 pg (28.0-33.3); Mean Corpuscular Volume 104.5 fL (83.0-100.0); Mean Platelet Volume 9.2 fL (9.4-12.4); Monocytes # 0.5 K/mcL (0.0-1.3); Monocytes % 5.1 %; Neutrophils # 5.8 K/mcL (1.6-8.9); Platelet Count 356 K/mcL (140-400); Red Blood Count 3.58 M/mcL (3.82-4.97); Red Cell Distribution Width 16.9 % (11.5-14.5); Segmented Neutrophils % 63.6 %
[2016-10-14 17:55] LABS: Alanine Aminotransferase 47 Units/L (0-55); Albumin 2.7 g/dL (3.5-5.0); Albumin/Globulin Ratio 0.8 (1.1-2.2); Alkaline Phosphatase 387 Units/L (38-126); Aspartate Amino Transferase 18 Units/L (5-34); BUN/Creatinine Ratio 7 (6-26); Bilirubin,Direct 0.3 mg/dL (0.0-0.5); Bilirubin,Indirect 0.2 mg/dL (0.0-1.2); Bilirubin,Total 0.5 mg/dL (0.2-1.2); Calcium 8.4 mg/dL (8.6-10.8); Carbon Dioxide 20 mEq/L (19-29); Chloride 110 mEq/L (98-109); Globulin 3.2 g/dL (2.4-3.5); Glucose 91 mg/dL (70-99); Lipase 15 Units/L (8-78); Osmolality,Calculated 282 (280-300); Potassium 3.5 mEq/L (3.5-4.5); Sodium 138 mEq/L (136-145); Total Protein 5.9 g/dL (6.0-8.3); eGFR For African Americans > 60 (> 60); eGFR For Non-African Americans > 60 (> 60)
[2016-10-14 17:56] LABS: Blood Urea Nitrogen 4 mg/dL (7-20)
[2016-10-14 18:07] LABS: Ethanol < 10 mg/dL (0-10)
[2016-10-14 20:49] VITALS: BP 147/83
[2016-10-14] MEDS ORDERED: *HR* Morphine 2 MG/ML SYRINGE IVP ONE (21:26)
[2016-10-14] MEDS ORDERED: 0.9 % Sodium Chloride 1,000 ML IVC SCH (21:30)
--- NOTE | 2016-10-14 23:30 | Event Note ---
Date of Encounter: 10/14/16 Time of Encounter: 23:24 I was notified that patient just left AMA about 15-20 minutes ago. She voiced to RN earlier that she was thinking of hurting herself and, as such, was a suicidal risk. Based on that information, I requested that patient be placed in suicide precautions and requested a sitter. Before I could see and admit patient, she just left AMA. Because she is a suicide risk, I contacted [employer] and discussed with them. We all agree that we need to contact [place] [employer] and request they bring her to ER if possible where she can be re-evaluated and "pink-slipped" if necessary for suicidal thoughts/plans. I therefore called [place] [employer] and requested they send a police manager to her home address in search of patient.
== END 2016-10-14 22:50 | disposition left against medical advice (07) ==
LOC: 3ANU 15:50 → EMEROO 15:50 → 3ANU 20:36
PROVIDERS: ADMIT Internal Medicine; ATTEND Internal Medicine

== ENCOUNTER 2016-11-05 19:55 | Inpatient (IN) ==
[2016-11-05] MEDS ORDERED: Ondansetron 4 MG/2 ML VIAL IVP ONE (20:19)
[2016-11-05 20:27] LABS: Bilirubin,Urine Small (Negative); Blood,Urine Negative (Negative); Clarity,Urine Clear (Clear); Color,Urine Yellow (Yellow); Glucose,Urine (UA) Normal (Normal); Ketones,Urine Trace mg/dL (Negative); Leukocyte Esterase,Urine Moderate (Negative); Nitrite,Urine Negative (Negative); PH,Urine 6.5 pH Units (5.0-8.0); Protein,Urine Negative (Neg-Trace); Specific Gravity,Urine 1.017 (1.010-1.025); Urobilinogen,Urine Normal (Normal)
[2016-11-05 20:29] LABS: Bacteria,Urine None Seen per hpf (None-Few); Hyaline Casts,Urine None Seen per lpf (None-Few); Squamous Epithelial Cell,Urine Many per lpf (None-Few)
[2016-11-05] MEDS: 0.9 % Sodium Chloride 1,000 ML IVC SCH (20:31)
[2016-11-05 20:34] LABS: Amphetamine Screen,Urine Negative ng/mL (Cutoff=1000); Barbiturate Screen,Urine Negative ng/mL (Cutoff=200); Benzodiazepines Screen,Urine Negative ng/mL (Cutoff=200); Cannabinoid Screen,Urine Negative ng/mL (Cutoff = 50); Cocaine Screen,Urine Negative ng/mL (Cutoff= 300); Opiate Screen,Urine Negative ng/mL (Cutoff=300); Phencyclidine Screen,Urine Negative ng/mL (Cutoff=25)
--- NOTE | 2016-11-05 20:39 | Emergency Department Note ---
Disposition Clinical Impression: Transaminitis Acetaminophen overdose Qualifiers: Encounter type: initial encounter Injury intent: accidental or unintentional Qualified Code(s): T39.1X1A - Poisoning by 4-Aminophenol derivatives, accidental (unintentional), initial encounter Disposition: Admitted As Inpatient Condition: Fair Referrals: Unassigned,Provider [Non-Partnered Physician] - Forms: Work/School Release, ED Satisfaction Letter General Adult HPI - General Chief complaint: ED Abdominal Pain Stated complaint: 4 bottles of apap in 4 days. Time Seen by Provider: 11/05/16 20:11 Source: patient Limitations: no limitations Nursing Notes Reviewed: Yes Vital Signs Reviewed: Yes - History of Present Illness Pain Scale: 9 - Related Data Home Medications Medication Instructions Recorded Confirmed Omeprazole [PriLOSEC] 40 mg PO DAILY 03/31/15 10/14/16 Paroxetine [Paxil] 60 mg PO DAILY 03/31/15 10/14/16 Ondansetron [Zofran] 8 mg PO Q6H PRN 11/29/15 10/14/16 Gabapentin [Neurontin] 800 mg PO TID 10/07/16 10/14/16 Albuterol Sulfate [Ventolin Hfa] 2 puff IH Q4H PRN 10/09/16 10/14/16 Ascorbate Calcium [Vitamin C] 500 mg PO DAILY 10/09/16 10/14/16 Pramipexole [Mirapex] 2 mg PO HS PRN 10/09/16 10/14/16 Ranitidine HCl [Acid General Administrator] 150 mg PO HS 10/09/16 10/14/16 Previous Rx's Medication Instructions Recorded Calcium Carbonate [Tums] 500 mg PO DAILY 10/11/16 Nicotine Patch [Nicoderm] 21 mg TD DAILY 10/11/16 OxyCODONE/APAP 5/325 [Percocet 1 each PO Q4HR PRN tab 10/11/16 5/325 MG] Allergies Allergy/AdvReac Type Severity Reaction Status Date / Time promethazine [From Phenergan] Allergy Seizure Verified 10/07/16 12:55 Past Medical History - Past Medical History Medical history: Reports: asthma, GERD, other Surgical history: Reports: , cholecystectomy Psychiatric history: Reports: anxiety, bipolar, depression ROUGH PATCHER history: Reports: no ROUGH PATCHER history - Social History Smoking Status: Current every day smoker Smokeless Tobacco Status: No Alcohol use: Reports: none Drug use: Reports: none Physical Exam - General Limitations: no limitations General appearance: alert, in no apparent distress Course Vital Signs Temperature 98.5 F 11/05/16 20:18 Pulse Rate 110 11/05/16 20:18 Respiratory Rate 18 11/05/16 20:18 Blood Pressure 155/98 11/05/16 20:18 O2 Sat by Pulse Oximetry 97 11/05/16 20:18 Temperature 98.5 F 11/05/16 20:18 Pulse Rate 107 11/05/16 22:19 Respiratory Rate 16 11/05/16 22:19 Blood Pressure 123/67 11/05/16 22:19 O2 Sat by Pulse Oximetry 99 11/05/16 22:19 Oxygen Delivery Oxygen Delivery Room Air Medical Decision Making - MDM Narrative Medical decision making narrative: I examined this patient and my medical decision-making was reviewed with the Resident Physician. I agree with the documented findings, disposition and treatment plan as described except to the extent set forth below. Patient seen and evaluated by Dr. Napier and myself, I agree with his evaluation and management plan, supervise care the patient that stay. Patient's well-known to the ER with a history of chronic pancreatitis chronic abdominal pain and also suicide attempts. She said the treat her pain she has been taking all 4 bottles of acetaminophen or last 4 days. But not an attempt to harm herself. She is altered here. Has a little bit of a nausea and some abdominal pain. Were going to check labs check acetaminophen level LFTs and then reassess. She is a bit altered and waning of family members, and the see if they think she is altered also. Will move her to a bed with a sitter. And then if we need to we can get psychiatry involved. 2200 hrs.: Patient's LFTs are elevated which could be from her pancreatitis but could also be from her acetaminophen ingestion. Her serum APAP level is 0. Per repeated supratherapeutic ingestion protocols she is to be treated with N- acetylcysteine for 21 hours by the IV route and then repeat LFTs if these have declined and they can stop and if they are continue to elevate she will need another course of treatment. Patient's agreeing to the admission. She still denies suicidality on this but with her history I am suspected that also. Impression is acetaminophen overdose with transaminitis. History of pancreatitis. History of suicidal ideations. Patient's admitted at this time. 2300 hrs.: Hospitalist was uncomfortable taking her and thought maybe she should be transferred to [facility] due to her elevation in her LFTs however she does not meet any transfer criteria, [facility] criteria requires her to have a serum pH is 7.3 or less, serum creatinine of 3.5 or greater, hepatic encephalopathy grades 45, an INR greater than 6 or a PT greater than 100 seconds. And she meets none of these criteria she is alert awake and intact she hungry has no abdominal pain or vomiting. This point ran out on the serum pH a lactic acid. Hospitalist will go ahead and take her. If she does get worse despite full therapy with N-acetylcysteine then he can talk to [facility] for potential transfer. She has got the IV N-acetylcysteine started here. I spoke with the hospitalist that I would recommend repeating her LFTs her chemistry in 68 hours and less she starts getting worse than sooner. And if these things appear to be going in the opposite direction as expected then they can talk to [facility] for transfer if these things are getting better her LFTs peak and decline then she could be potentially discharged at that time assuming that she does not need to be seen by psychiatry. He is in agreement that plan. Patient's critical care time exclusive of billable procedures was 35 minutes. - Lab Data Result diagrams: 11/05/16 22:01 11/05/16 22:01 Lab Results 11/05/16 11/05/16 11/05/16 Range/Units 20:15 20:15 22:01 WBC 4.8 (4.3-11.1) K/mcL RBC 2.96 L (3.82-4.97) M/mcL Hgb 10.6 L (11.5-15.4) g/dL Hct 29.0 L (35.3-44.9) % MCV 98.0 (83.0-100.0) fL MCH 35.8 H (28.0-33.3) pg MCHC 36.6 H (31.6-35.5) g/dL RDW 17.8 H (11.5-14.5) % Plt Count 175 (140-400) K/mcL MPV 8.3 L (9.4-12.4) fL Immature Gran % 0.6 (0-4) % Seg Neutrophils % 70.9 % Lymphocytes % 26.5 % Monocytes % 1.4 % Eosinophils % 0.4 % Basophils % 0.2 % Neutrophils # 3.4 (1.6-8.9) K/mcL Lymphocytes # 1.3 (0.6-4.6) K/mcL Monocytes # 0.1 (0.0-1.3) K/mcL Eosinophils # 0.0 (0.0-0.6) K/mcL Basophils # 0.0 (0.0-0.2) K/mcL PT (9.4-12.1) Seconds INR Sodium (136-145) mEq/L Potassium (3.5-4.5) mEq/L Chloride (98-109) mEq/L Carbon Dioxide (19-29) mEq/L BUN (7-20) mg/dL Creatinine (0.57-1.11) mg/dL Est GFR ( Amer) (> 60) Est GFR (Non-Af Amer) (> 60) BUN/Creatinine Ratio (6-26) Glucose (70-99) mg/dL Calculated Osmolality (280-300) Calcium (8.6-10.8) mg/dL Total Bilirubin (0.2-1.2) mg/dL AST (5-34) Units/L ALT (0-55) Units/L Alkaline Phosphatase (38-126) Units/L Serum Total Protein (6.0-8.3) g/dL Albumin (3.5-5.0) g/dL Globulin (2.4-3.5) g/dL Albumin/Globulin Ratio (1.1-2.2) Lipase (8-78) Units/L Urine Color Yellow (Yellow) Urine Clarity Clear (Clear) Urine pH 6.5 (5.0-8.0) pH Units Ur Specific Bennett 1.017 (1.010-1.025) Urine Protein Negative (Neg-Trace) mg/dL Urine Glucose (UA) Normal (Normal) mg/dL Urine Ketones Trace H (Negative) mg/dL Urine Blood Negative (Negative) Urine Nitrite Negative (Negative) Urine Bilirubin Small H (Negative) Urine Urobilinogen Normal (Normal) mg/dL Ur Leukocyte Esterase Moderate H (Negative) Urine Microscopic RBC 5-15 H (0-3) per hpf Urine Microscopic WBC 5-15 H (0-3) per hpf Ur Squamous Epith Cells Many H (None-Few) per lpf Urine Bacteria None Seen (None-Few) per hpf Hyaline Casts None Seen (None-Few) per lpf Ur Culture Indicated? YES A (NO) Salicylates (15-30) mg/dL Urine Opiates Screen Negative (Pompos=288) ng/mL Acetaminophen (10-30) mcg/mL Ur Barbiturates Screen Negative (Qawyyc=988) ng/mL Ur Phencyclidine Scrn Negative (Cutoff=25) ng/mL Ur Amphetamines Screen Negative (Hbchrc=5804) ng/mL U Benzodiazepines Scrn Negative (Hxhpdf=397) ng/mL Urine Cocaine Screen Negative (Cutoff= 300) ng/mL U Marijuana (THC) Screen Negative (Cutoff = 50) ng/mL 11/05/16 11/05/16 Range/Units 22:01 22:01 WBC (4.3-11.1) K/mcL RBC (3.82-4.97) M/mcL Hgb (11.5-15.4) g/dL Hct (35.3-44.9) % MCV (83.0-100.0) fL MCH (28.0-33.3) pg MCHC (31.6-35.5) g/dL RDW (11.5-14.5) % Plt Count (140-400) K/mcL MPV (9.4-12.4) fL Immature Gran % (0-4) % Seg Neutrophils % % Lymphocytes % % Monocytes % % Eosinophils % % Basophils % % Neutrophils # (1.6-8.9) K/mcL Lymphocytes # (0.6-4.6) K/mcL Monocytes # (0.0-1.3) K/mcL Eosinophils # (0.0-0.6) K/mcL Basophils # (0.0-0.2) K/mcL PT 21.0 H (9.4-12.1) Seconds INR 1.9 Sodium 131 L (136-145) mEq/L Potassium 2.8 L (3.5-4.5) mEq/L Chloride 100 (98-109) mEq/L Carbon Dioxide 18 L (19-29) mEq/L BUN < 2 L (7-20) mg/dL Creatinine 0.74 (0.57-1.11) mg/dL Est GFR ( Amer) > 60 (> 60) Est GFR (Non-Af Amer) > 60 (> 60) BUN/Creatinine Ratio 3 L (6-26) Glucose 96 (70-99) mg/dL Calculated Osmolality 268 L (280-300) Calcium 9.0 (8.6-10.8) mg/dL Total Bilirubin 3.4 H (0.2-1.2) mg/dL AST 149 H (5-34) Units/L ALT 102 H (0-55) Units/L Alkaline Phosphatase 390 H (38-126) Units/L Serum Total Protein 6.0 (6.0-8.3) g/dL Albumin 2.7 L (3.5-5.0) g/dL Globulin 3.3 (2.4-3.5) g/dL Albumin/Globulin Ratio 0.8 L (1.1-2.2) Lipase < 10 (8-78) Units/L Urine Color (Yellow) Urine Clarity (Clear) Urine pH (5.0-8.0) pH Units Ur Specific Bennett (1.010-1.025) Urine Protein (Neg-Trace) mg/dL Urine Glucose (UA) (Normal) mg/dL Urine Ketones (Negative) mg/dL Urine Blood (Negative) Urine Nitrite (Negative) Urine Bilirubin (Negative) Urine Urobilinogen (Normal) mg/dL Ur Leukocyte Esterase (Negative) Urine Microscopic RBC (0-3) per hpf Urine Microscopic WBC (0-3) per hpf Ur Squamous Epith Cells (None-Few) per lpf Urine Bacteria (None-Few) per hpf Hyaline Casts (None-Few) per lpf Ur Culture Indicated? (NO) Salicylates < 5.0 L (15-30) mg/dL Urine Opiates Screen (Eloimy=259) ng/mL Acetaminophen 30.0 (10-30) mcg/mL Ur Barbiturates Screen (Kezajb=034) ng/mL Ur Phencyclidine Scrn (Cutoff=25) ng/mL Ur Amphetamines Screen (Wxckhy=7636) ng/mL U Benzodiazepines Scrn (Gftcus=624) ng/mL Urine Cocaine Screen (Cutoff= 300) ng/mL U Marijuana (THC) Screen (Cutoff = 50) ng/mL
--- NOTE | 2016-11-05 21:15 | Emergency Department Note ---
Disposition Clinical Impression: Transaminitis Acetaminophen overdose Qualifiers: Encounter type: initial encounter Injury intent: accidental or unintentional Qualified Code(s): T39.1X1A - Poisoning by 4-Aminophenol derivatives, accidental (unintentional), initial encounter Disposition: Admitted As Inpatient Condition: Fair Referrals: Unassigned,Provider [Non-Partnered Physician] - Forms: ED Satisfaction Letter, Work/School Release General Adult HPI - General Chief complaint: ED Abdominal Pain Stated complaint: 4 bottles of apap in 4 days. Time Seen by Provider: 11/05/16 20:11 Source: patient Limitations: no limitations Nursing Notes Reviewed: Yes Vital Signs Reviewed: Yes - History of Present Illness HPI Narrative: This is a 38-year-old female with a past medical history of suicidal ideations, chronic pancreatitis. She presents to the emergency department via EMS after taking 4 bottles of aspirin in the past week. She states that she did this to take care of her pancreatic pain in that she was not trying to harm herself. Pain Scale: 9 - Related Data Home Medications Medication Instructions Recorded Confirmed Omeprazole [PriLOSEC] 40 mg PO DAILY 03/31/15 10/14/16 Paroxetine [Paxil] 60 mg PO DAILY 03/31/15 10/14/16 Ondansetron [Zofran] 8 mg PO Q6H PRN 11/29/15 10/14/16 Gabapentin [Neurontin] 800 mg PO TID 10/07/16 10/14/16 Albuterol Sulfate [Ventolin Hfa] 2 puff IH Q4H PRN 10/09/16 10/14/16 Ascorbate Calcium [Vitamin C] 500 mg PO DAILY 10/09/16 10/14/16 Pramipexole [Mirapex] 2 mg PO HS PRN 10/09/16 10/14/16 Ranitidine HCl [Acid Instrument Shop Supervisor] 150 mg PO HS 10/09/16 10/14/16 Previous Rx's Medication Instructions Recorded Calcium Carbonate [Tums] 500 mg PO DAILY 10/11/16 Nicotine Patch [Nicoderm] 21 mg TD DAILY 10/11/16 OxyCODONE/APAP 5/325 [Percocet 1 each PO Q4HR PRN tab 10/11/16 5/325 MG] Allergies Allergy/AdvReac Type Severity Reaction Status Date / Time promethazine [From Phenergan] Allergy Seizure Verified 10/07/16 12:55 All systems ED: reviewed and negative except as stated. Constitutional: Denies: fever, chills Cardiovascular: Denies: chest pain, palpitations Gastrointestinal: Reports: abdominal pain, nausea, vomiting Genitourinary: Denies: urgency, dysuria Psychiatric: Reports: anxiety Hematological/Lymphatic: Denies: easy bleeding Past Medical History - Past Medical History Medical history: Reports: asthma, GERD, other Surgical history: Reports: , cholecystectomy Psychiatric history: Reports: anxiety, bipolar, depression CERTIFIED ORTHOTIC FITTER history: Reports: no CERTIFIED ORTHOTIC FITTER history - Social History Smoking Status: Current every day smoker Smokeless Tobacco Status: No Alcohol use: Reports: none Drug use: Reports: none Physical Exam - General Limitations: no limitations General appearance: alert, in no apparent distress - Head Head exam: atraumatic, normocephalic - Eye Eye exam: Absent: scleral icterus, conjunctival injection - ENT ENT exam: normal oropharynx, mucous membranes moist - Neck Neck exam: Present: trachea midline. Absent: tenderness, meningismus - Chest Chest inspection: Present: normal inspection, symmetric chest wall rise - Respiratory Respiratory exam: Present: normal lung sounds bilaterally. Absent: respiratory distress, accessory muscle use - Cardiovascular Cardiovascular exam: Present: normal rhythm, tachycardia - Abdominal Exam Abdominal exam: Present: soft, tenderness Abdominal tenderness: Present: epigastrium, mild - Extremities Exam Extremities exam: Present: normal capillary refill - Neurological Exam Neurological exam: Present: alert, oriented X3, CN II-XII intact - Psychiatric Psychiatric exam: Present: normal affect, normal mood - Skin Skin exam: Present: warm, dry, intact Course Course Narrative: This is a 46-year-old female with a past medical history of suicidal ideations and a recent ingestion of 4 bottles of Tylenol over a five-day period. This patient appears to be altered on initial exam. I will obtain a CBC, CMP, lipase , EKG, urine drug screen, urinalysis, PT/INR. I will give her a liter of normal saline. I will also assign a sitter to this patient as I do not know if she was making a suicide attempt. She denies this, but the patient is altered and I feel like she could be a harm to herself. - Reevaluation(s) Reevaluation #1: Patient has elevated hepatic transaminases which is different from her normal baseline. She has an elevated INR as well as an elevated bilirubin. This time , we will initiate N-acetylcysteine protocol. I will obtain a VBG, lactic acid , APTT at this time. I spoke with the patient and told her that we are admitting her to the hospitalist. The patient and agree with the plan. Hospitalist was called and my attending Dr. Esqueda spoke with Dr. Mcintosh and he agreed to accept the admission. Time: 23:04 Vital Signs Temperature 98.5 F 11/05/16 20:18 Pulse Rate 110 11/05/16 20:18 Respiratory Rate 18 11/05/16 20:18 Blood Pressure 155/98 11/05/16 20:18 O2 Sat by Pulse Oximetry 97 11/05/16 20:18 Temperature 98.5 F 11/05/16 20:18 Pulse Rate 107 11/05/16 22:19 Respiratory Rate 16 11/05/16 22:19 Blood Pressure 123/67 11/05/16 22:19 O2 Sat by Pulse Oximetry 99 11/05/16 22:19 Oxygen Delivery Oxygen Delivery Room Air Medical Decision Making - Lab Data Result diagrams: 11/05/16 22:01 11/05/16 22:01 Lab Results 11/05/16 11/05/16 11/05/16 Range/Units 20:15 20:15 22:01 WBC 4.8 (4.3-11.1) K/mcL RBC 2.96 L (3.82-4.97) M/mcL Hgb 10.6 L (11.5-15.4) g/dL Hct 29.0 L (35.3-44.9) % MCV 98.0 (83.0-100.0) fL MCH 35.8 H (28.0-33.3) pg MCHC 36.6 H (31.6-35.5) g/dL RDW 17.8 H (11.5-14.5) % Plt Count 175 (140-400) K/mcL MPV 8.3 L (9.4-12.4) fL Immature Gran % 0.6 (0-4) % Seg Neutrophils % 70.9 % Lymphocytes % 26.5 % Monocytes % 1.4 % Eosinophils % 0.4 % Basophils % 0.2 % Neutrophils # 3.4 (1.6-8.9) K/mcL Lymphocytes # 1.3 (0.6-4.6) K/mcL Monocytes # 0.1 (0.0-1.3) K/mcL Eosinophils # 0.0 (0.0-0.6) K/mcL Basophils # 0.0 (0.0-0.2) K/mcL PT (9.4-12.1) Seconds INR Sodium (136-145) mEq/L Potassium (3.5-4.5) mEq/L Chloride (98-109) mEq/L Carbon Dioxide (19-29) mEq/L BUN (7-20) mg/dL Creatinine (0.57-1.11) mg/dL Est GFR ( Amer) (> 60) Est GFR (Non-Af Amer) (> 60) BUN/Creatinine Ratio (6-26) Glucose (70-99) mg/dL Calculated Osmolality (280-300) Calcium (8.6-10.8) mg/dL Total Bilirubin (0.2-1.2) mg/dL AST (5-34) Units/L ALT (0-55) Units/L Alkaline Phosphatase (38-126) Units/L Serum Total Protein (6.0-8.3) g/dL Albumin (3.5-5.0) g/dL Globulin (2.4-3.5) g/dL Albumin/Globulin Ratio (1.1-2.2) Lipase (8-78) Units/L Urine Color Yellow (Yellow) Urine Clarity Clear (Clear) Urine pH 6.5 (5.0-8.0) pH Units Ur Specific [place] 1.017 (1.010-1.025) Urine Protein Negative (Neg-Trace) mg/dL Urine Glucose (UA) Normal (Normal) mg/dL Urine Ketones Trace H (Negative) mg/dL Urine Blood Negative (Negative) Urine Nitrite Negative (Negative) Urine Bilirubin Small H (Negative) Urine Urobilinogen Normal (Normal) mg/dL Ur Leukocyte Esterase Moderate H (Negative) Urine Microscopic RBC 5-15 H (0-3) per hpf Urine Microscopic WBC 5-15 H (0-3) per hpf Ur Squamous Epith Cells Many H (None-Few) per lpf Urine Bacteria None Seen (None-Few) per hpf Hyaline Casts None Seen (None-Few) per lpf Ur Culture Indicated? YES A (NO) Salicylates (15-30) mg/dL Urine Opiates Screen Negative (Dysatj=414) ng/mL Acetaminophen (10-30) mcg/mL Ur Barbiturates Screen Negative (Vtyccg=477) ng/mL Ur Phencyclidine Scrn Negative (Cutoff=25) ng/mL Ur Amphetamines Screen Negative (Iyteto=0348) ng/mL U Benzodiazepines Scrn Negative (Xqbyxx=550) ng/mL Urine Cocaine Screen Negative (Cutoff= 300) ng/mL U Marijuana (THC) Screen Negative (Cutoff = 50) ng/mL 11/05/16 11/05/16 Range/Units 22:01 22:01 WBC (4.3-11.1) K/mcL RBC (3.82-4.97) M/mcL Hgb (11.5-15.4) g/dL Hct (35.3-44.9) % MCV (83.0-100.0) fL MCH (28.0-33.3) pg MCHC (31.6-35.5) g/dL RDW (11.5-14.5) % Plt Count (140-400) K/mcL MPV (9.4-12.4) fL Immature Gran % (0-4) % Seg Neutrophils % % Lymphocytes % % Monocytes % % Eosinophils % % Basophils % % Neutrophils # (1.6-8.9) K/mcL Lymphocytes # (0.6-4.6) K/mcL Monocytes # (0.0-1.3) K/mcL Eosinophils # (0.0-0.6) K/mcL Basophils # (0.0-0.2) K/mcL PT 21.0 H (9.4-12.1) Seconds INR 1.9 Sodium 131 L (136-145) mEq/L Potassium 2.8 L (3.5-4.5) mEq/L Chloride 100 (98-109) mEq/L Carbon Dioxide 18 L (19-29) mEq/L BUN < 2 L (7-20) mg/dL Creatinine 0.74 (0.57-1.11) mg/dL Est GFR ( Amer) > 60 (> 60) Est GFR (Non-Af Amer) > 60 (> 60) BUN/Creatinine Ratio 3 L (6-26) Glucose 96 (70-99) mg/dL Calculated Osmolality 268 L (280-300) Calcium 9.0 (8.6-10.8) mg/dL Total Bilirubin 3.4 H (0.2-1.2) mg/dL AST 149 H (5-34) Units/L ALT 102 H (0-55) Units/L Alkaline Phosphatase 390 H (38-126) Units/L Serum Total Protein 6.0 (6.0-8.3) g/dL Albumin 2.7 L (3.5-5.0) g/dL Globulin 3.3 (2.4-3.5) g/dL Albumin/Globulin Ratio 0.8 L (1.1-2.2) Lipase < 10 (8-78) Units/L Urine Color (Yellow) Urine Clarity (Clear) Urine pH (5.0-8.0) pH Units Ur Specific [place] (1.010-1.025) Urine Protein (Neg-Trace) mg/dL Urine Glucose (UA) (Normal) mg/dL Urine Ketones (Negative) mg/dL Urine Blood (Negative) Urine Nitrite (Negative) Urine Bilirubin (Negative) Urine Urobilinogen (Normal) mg/dL Ur Leukocyte Esterase (Negative) Urine Microscopic RBC (0-3) per hpf Urine Microscopic WBC (0-3) per hpf Ur Squamous Epith Cells (None-Few) per lpf Urine Bacteria (None-Few) per hpf Hyaline Casts (None-Few) per lpf Ur Culture Indicated? (NO) Salicylates < 5.0 L (15-30) mg/dL Urine Opiates Screen (Nbcthd=903) ng/mL Acetaminophen 30.0 (10-30) mcg/mL Ur Barbiturates Screen (Hiazgx=134) ng/mL Ur Phencyclidine Scrn (Cutoff=25) ng/mL Ur Amphetamines Screen (Rlinjv=2242) ng/mL U Benzodiazepines Scrn (Qucnyz=042) ng/mL Urine Cocaine Screen (Cutoff= 300) ng/mL U Marijuana (THC) Screen (Cutoff = 50) ng/mL - EKG Data EKG #1 EKG attestation: Yes I reviewed and interpreted this EKG. EKG results narrative: 11/05/2016 20:52 Ventricular rate 104 bpm, AR interval 169 ms, QRS duration 90 ms, QT 303 ms, QTC 363 ms, left axis deviation. Sinus tachycardia with a ventricular rate of 100 bpm. There is no evidence of QT prolongation, tall R-wave in aVR, or arrhythmia. The QRS complexes flipped in lead III there are no other noted ischemic EKG changes.
[2016-11-05] MEDS ORDERED: Nicotine 21 MG PATCH.TD24 TD ONE (21:42)
[2016-11-05 22:12] LABS: Basophils % 0.2 %; Eosinophils % 0.4 %; Hemoglobin 10.6 g/dL (11.5-15.4); Immature Granulocytes % 0.6 % (0-4); Lymphocytes # 1.3 K/mcL (0.6-4.6); Lymphocytes % 26.5 %; Mean Corpuscular HGB Conc 36.6 g/dL (31.6-35.5); Mean Corpuscular Hemoglobin 35.8 pg (28.0-33.3); Mean Platelet Volume 8.3 fL (9.4-12.4); Monocytes # 0.1 K/mcL (0.0-1.3); Monocytes % 1.4 %; Neutrophils # 3.4 K/mcL (1.6-8.9); Platelet Count 175 K/mcL (140-400); Red Blood Count 2.96 M/mcL (3.82-4.97); Red Cell Distribution Width 17.8 % (11.5-14.5); Segmented Neutrophils % 70.9 %
[2016-11-05 22:18] LABS: INR 1.9
[2016-11-05 22:27] LABS: Alanine Aminotransferase 102 Units/L (0-55); Albumin 2.7 g/dL (3.5-5.0); Albumin/Globulin Ratio 0.8 (1.1-2.2); Alkaline Phosphatase 390 Units/L (38-126); Aspartate Amino Transferase 149 Units/L (5-34); BUN/Creatinine Ratio 3 (6-26); Bilirubin,Total 3.4 mg/dL (0.2-1.2); Carbon Dioxide 18 mEq/L (19-29); Chloride 100 mEq/L (98-109); Globulin 3.3 g/dL (2.4-3.5); Glucose 96 mg/dL (70-99); Osmolality,Calculated 268 (280-300); Potassium 2.8 mEq/L (3.5-4.5); Sodium 131 mEq/L (136-145); eGFR For African Americans > 60 (> 60); eGFR For Non-African Americans > 60 (> 60)
[2016-11-05 22:30] LABS: Blood Urea Nitrogen < 2 mg/dL (7-20); Lipase < 10 Units/L (8-78); Salicylate < 5.0 mg/dL (15-30)
[2016-11-05] MEDS ORDERED: Acetylcysteine 8,800 MG in D5% in Water 250 ML IVC ONE (22:38)
[2016-11-05] MEDS ORDERED: Acetylcysteine 2,900 MG in D5% in Water 500 ML IVC ONE (22:38)
[2016-11-05] MEDS ORDERED: Potassium Effervescent 25 MEQ TABLET.EFF PO ONE (22:55)
[2016-11-05 23:23] LABS: VBG HCO3 17.6 mEq/L (21-27); VBG PH 7.31 pH Units (7.32-7.42)
[2016-11-05] MEDS ORDERED: Pantoprazole 40 MG VIAL IVP ONE (23:55)
[2016-11-05] MEDS ORDERED: 0.9 % Sodium Chloride 1,000 ML IVC ONE (23:55)
--- NOTE | 2016-11-06 00:30 | Internal Med History&Physical ---
Date of Encounter: 11/06/16 Time of Encounter: 00:25 Assessment and Plan (1) Tylenol overdose Current visit: Yes Status: Acute Patient took 200 g of Tylenol over the past 4 days, has not taken any Tylenol in the past 24 hours and that is why Tylenol level is only modest. Will give N- acetyl cysteine. 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 However at her current values there is no indication for consideration of transplant. I discussed the case with a petroleum blending plant operator at [facility]. Recommendations to follow labs every 6 hours including synthetic functions of the liver and if there is worsening she will be transferred. They did not recommend transfer right now. Prognosis guarded Qualifiers: Qualified Code(s): T39.1X1A - Poisoning by 4-Aminophenol derivatives, accidental (unintentional), initial encounter (2) Suicidal behavior Current visit: Yes Status: Acute This behavior is a suicidal behavior, and therefore will keep patient with sitter at bedside. Psychiatry evaluation. Qualifiers: Qualified Code(s): T14.91 - Suicide attempt (3) BRBPR (bright red blood per rectum) Current visit: Yes Status: Acute I will keep patient on Protonix drip as she has bright red bleeding per rectum. Follow H and H q 6. She has a 2-3 gm Hb drop. Internal Medicine - H&P: HPI Chief complaint: tylenol overdose History of present illness: Ms. Chi is a 46 year old female presents to the emergency room today after her son was concerned about her taking too much Tylenol. Over the past 4 days patient took approximately 400 pills or 500 mg of Tylenol. That is approximately 200 g of Tylenol. She has not taken Tylenol approximately in the past 24 hours (tylenol level on arrival 30). She mentioned that she was taking approximately 4 pills every hour over the past 4 days. She started having epigastric and right upper quadrant pain nausea vomiting. She also noticed bright red blood rectum. Her son was concerned about taking too much time also brought her to the emergency room. She denies any other coingestion. 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 Bilirubin was 3.4, INR was 1.9, pH 7.31. Have discussed with petroleum blending plant operator at [facility] recommended keeping the patient here given her and assesses the rechecking labs including synthetic functions of the liver every 6 hours there is worsening of synthetic functions of the liver she will be transferred. Past Med Surg Social Fam HX - Past Medical History Medical history: asthma, GERD, other Psychiatric history: anxiety, bipolar, depression - Past Surgical History Surgical History: , cholecystectomy - Social History Smoking Status: Current every day smoker Smokeless Tobacco Status: No Alcohol use: none Drug use: none - Family History Father Adopted: No Family Member Ethnicity: Non- Living Status: Mother Adopted: No Family Member Ethnicity: Non- Living Status: Still Living Hx Family Cardiac Disorders: Yes Hx Family Respiratory Disorders: No Hx Family Cancer: No Hx Family GI Disorders: No Hx Family Endocrine Disorder: Yes Hx Family Neuromuscular Disorders: No Internal Medicine - H&P: Meds Omeprazole [PriLOSEC] 40 mg PO DAILY 03/31/15 [History] Paroxetine [Paxil] 60 mg PO DAILY 03/31/15 [History] Ondansetron [Zofran] 8 mg PO Q6H PRN 11/29/15 [History] Gabapentin [Neurontin] 800 mg PO TID 10/07/16 [History] Albuterol Sulfate [Ventolin Hfa] 2 puff IH Q4H PRN 10/09/16 [History] Ascorbate Calcium [Vitamin C] 500 mg PO DAILY 10/09/16 [History] Pramipexole [Mirapex] 2 mg PO HS PRN 10/09/16 [History] Ranitidine HCl [Acid Financial Planning Analyst] 150 mg PO HS 10/09/16 [History] Calcium Carbonate [Tums] 500 mg PO DAILY 10/11/16 [Rx] Nicotine Patch [Nicoderm] 21 mg TD DAILY 10/11/16 [Rx] OxyCODONE/APAP 5/325 [Percocet 5/325 MG] 1 each PO Q4HR PRN tab 10/11/16 [Rx] 3 Allergy/AdvReac Type Severity Reaction Status Date / Time promethazine [From Phenergan] Allergy Seizure Verified 10/07/16 12:55 All Systems PM: A 10-system review of systems was performed and is negative for pertinent findings except as documented above in the HPI. Review of systems: 10 point reviewable assistances negative except for HPI - Constitutional Vitals: Temp Pulse Resp BP Pulse Ox 98 F 114 20 140/72 97 11/05/16 23:48 11/05/16 23:08 11/05/16 23:48 11/05/16 23:48 11/05/16 23:08 Exam: Gen.: patient is alert oriented times 3 cardiac: normal S1 S2 no additional sounds or murmurs chest: no active wheezing or bronchial breathing abdomen tenderness in epigastric and RUQ. No rebound tenderness lower extremity no swelling. Neuro: no new focal deficits Internal Med - H&P Results - Labs CBC & Chem 7: 11/05/16 22:01 11/05/16 22:01
[2016-11-06 05:53] LABS: Basophils % 0.3 %; Eosinophils % 0.5 %; Hematocrit 30.3 % (35.3-44.9); Immature Granulocytes % 1.5 % (0-4); Lymphocytes # 1.2 K/mcL (0.6-4.6); Lymphocytes % 31.4 %; Mean Corpuscular HGB Conc 36.3 g/dL (31.6-35.5); Mean Corpuscular Volume 96.5 fL (83.0-100.0); Mean Platelet Volume 8.6 fL (9.4-12.4); Monocytes # 0.1 K/mcL (0.0-1.3); Monocytes % 1.8 %; Neutrophils # 2.5 K/mcL (1.6-8.9); Platelet Count 156 K/mcL (140-400); Red Blood Count 3.14 M/mcL (3.82-4.97); Red Cell Distribution Width 17.6 % (11.5-14.5); Segmented Neutrophils % 64.5 %
[2016-11-06 05:55] LABS: INR 2.2; Prothrombin Time 23.6 Seconds (9.4-12.1)
[2016-11-06 05:58] LABS: Activated Partial Thrombo Time 39.3 Seconds (26.0-36.0)
[2016-11-06 06:08] LABS: Alanine Aminotransferase 86 Units/L (0-55); Albumin 2.3 g/dL (3.5-5.0); Albumin/Globulin Ratio 0.7 (1.1-2.2); Alkaline Phosphatase 327 Units/L (38-126); Aspartate Amino Transferase 110 Units/L (5-34); BUN/Creatinine Ratio 3 (6-26); Bilirubin,Direct 2.3 mg/dL (0.0-0.5); Bilirubin,Indirect 1.2 mg/dL (0.0-1.2); Bilirubin,Total 3.5 mg/dL (0.2-1.2); Blood Urea Nitrogen < 2 mg/dL (7-20); Calcium 8.7 mg/dL (8.6-10.8); Carbon Dioxide 19 mEq/L (19-29); Chloride 104 mEq/L (98-109); Globulin 3.2 g/dL (2.4-3.5); Glucose 139 mg/dL (70-99); Magnesium 1.5 mg/dL (1.6-2.6); Osmolality,Calculated 276 (280-300); Potassium 2.7 mEq/L (3.5-4.5); Sodium 134 mEq/L (136-145); Total Protein 5.5 g/dL (6.0-8.3); eGFR For African Americans > 60 (> 60); eGFR For Non-African Americans > 60 (> 60)
[2016-11-06] MEDS: Pantoprazole 40 MG in 0.9 % Sodium Chloride Mini Bag 100 ML IVC SCH ×2 (06:15)
[2016-11-06 06:16] LABS: Hypochromasia Present (Not Present); Platelet Estimate Normal (Normal)
[2016-11-06 06:17] LABS: Anisocytosis 1+ (Not Present)
[2016-11-06] MEDS: 0.9 % Sodium Chloride 1,000 ML IVC SCH (06:33)
[2016-11-06] MEDS ORDERED: Potassium Chloride 40 MEQ, Lidocaine 1% 2 ML in D5% in Water 500 ML IVPB ONE (06:39)
[2016-11-06] MEDS ORDERED: Acetylcysteine 5,800 MG in D5% in Water 1,000 ML IVC ONE (07:23)
--- NOTE | 2016-11-06 09:26 | Consult Note ---
Date of Encounter: 11/06/16 Time of Encounter: 09:24 Assessment & Recommendation (1) Anxiety Current visit: No Status: Chronic Assessment & Recommendation: - pt is not currently suicidal/homicidal pt is not a threat to herself or anyone else - pt reports she was not trying to kill herself - pt reports having chronic issues with pain - pt will follow up [facility] outpatient psychiatrist and counselor History of Present Illness Requesting Physician: Mohsen Holland MD Reason for consult: tylenol overdose History of present illness: Ms. Chi is a 46 year old female with a past psychiatric history of bipolar disorder patient reports she is currently stable on Paxil and Topamax she reports that she does have a current psychiatrist as well as a counselor outpatient. Patient reports that prior to admission she took extra Tylenol because she was in a lot of pain and she felt taking extra Tylenol would help with her pain. Patient reports that she was referred to a pain management doctor where she missed an appointment. Patient reports that she used to get Percocets but her provider stopped providing that and that is when she was heard to pain management. Patient reports that she has never had any past suicide at times and she reports she has no thoughts of hurting herself she reports that she took extra of the Tylenol to help with the pain. Patient reports "I do not want to kill myself ". Patient reports that she does have a follow-up appointment with her psychiatrist. Patient reports that she lives with her son know why as well as their [id number]. Patient denies current depressive symptoms patient does endorse mild anxiety secondary to her pain symptoms patient denies manic or hypomanic symptoms patient denies psychotic symptoms patient denied auditory or visual hallucinations Patient reports after she took the extra Tylenol she knew what she did and she did call the ambulance herself to get help. CC: Mohsen Holland MD Past Med Surg Social Fam HX - Past Medical History Medical history: asthma, GERD, other - Past Surgical History Surgical History: , cholecystectomy - Social History Smoking Status: Current every day smoker Smokeless Tobacco Status: No Alcohol use: none Drug use: none - Family History Father Adopted: No Family Member Ethnicity: Non- Living Status: Hx Family Psychosocial Disorders: Yes Mother Adopted: No Family Member Ethnicity: Non- Living Status: Still Living Hx Family Cardiac Disorders: Yes Hx Family Respiratory Disorders: No Hx Family Cancer: No Hx Family GI Disorders: No Hx Family Endocrine Disorder: Yes Hx Family Neuromuscular Disorders: No Hx Family Psychosocial Disorders: Yes Medications & Allergies Omeprazole [PriLOSEC] 40 mg PO DAILY 03/31/15 [History] Paroxetine [Paxil] 60 mg PO DAILY 03/31/15 [History] Ondansetron [Zofran] 8 mg PO Q6H PRN 11/29/15 [History] Gabapentin [Neurontin] 800 mg PO TID 10/07/16 [History] Albuterol Sulfate [Ventolin Hfa] 2 puff IH Q4H PRN 10/09/16 [History] Ascorbate Calcium [Vitamin C] 500 mg PO DAILY 10/09/16 [History] Pramipexole [Mirapex] 2 mg PO HS PRN 10/09/16 [History] Ranitidine HCl [Acid Marine Drafter] 150 mg PO HS 10/09/16 [History] Calcium Carbonate [Tums] 500 mg PO DAILY 10/11/16 [Rx] Nicotine Patch [Nicoderm] 21 mg TD DAILY 10/11/16 [Rx] OxyCODONE/APAP 5/325 [Percocet 5/325 MG] 1 each PO Q4HR PRN tab 10/11/16 [Rx] 3 Allergy/AdvReac Type Severity Reaction Status Date / Time promethazine [From Phenergan] Allergy Seizure Verified 10/07/16 12:55 Mental Status Exam Patient orientation: Yes Person, Yes Time, Yes Place, Yes Circumstance Level of alertness: Alert Patient appearance: Appropriate Behavior: calm Psychomotor activity: Normal Eye contact: Maintains Eye Contact Mood description: Euthymic/stable Affect description: congruent with mood Speech pattern: Normal rate, Normal rhythm, Normal tone Speech volume: Normal Thought process: Intact Thought content: Yes Intact Attention span: Capable of Focused Attention, Capable of Sustained Attention Memory description: Grossly Intact, Immediate Intact Patient reliability: Reliable Historian Intelligence estimate: Average Judgment: Good Insight: Full Results - Vital Signs Vital signs: Temp Pulse Resp BP Pulse Ox 98.2 F 113 19 114/73 96 11/06/16 07:21 11/06/16 07:21 11/06/16 07:21 11/06/16 07:21 11/06/16 07:21 - Labs Labs: Laboratory Last Values WBC 3.9 K/mcL (4.3-11.1) L 11/06/16 05:35 RBC 3.14 M/mcL (3.82-4.97) L 11/06/16 05:35 Hgb 11.0 g/dL (11.5-15.4) L 11/06/16 05:35 Hct 30.3 % (35.3-44.9) L 11/06/16 05:35 MCV 96.5 fL (83.0-100.0) 11/06/16 05:35 MCH 35.0 pg (28.0-33.3) H 11/06/16 05:35 MCHC 36.3 g/dL (31.6-35.5) H 11/06/16 05:35 RDW 17.6 % (11.5-14.5) H 11/06/16 05:35 Plt Count 156 K/mcL (140-400) 11/06/16 05:35 MPV 8.6 fL (9.4-12.4) L 11/06/16 05:35 Immature Gran % 1.5 % (0-4) 11/06/16 05:35 Seg Neutrophils % 64.5 % 11/06/16 05:35 Lymphocytes % 31.4 % 11/06/16 05:35 Monocytes % 1.8 % 11/06/16 05:35 Eosinophils % 0.5 % 11/06/16 05:35 Basophils % 0.3 % 11/06/16 05:35 Neutrophils # 2.5 K/mcL (1.6-8.9) 11/06/16 05:35 Lymphocytes # 1.2 K/mcL (0.6-4.6) 11/06/16 05:35 Monocytes # 0.1 K/mcL (0.0-1.3) 11/06/16 05:35 Eosinophils # 0.0 K/mcL (0.0-0.6) 11/06/16 05:35 Basophils # 0.0 K/mcL (0.0-0.2) 11/06/16 05:35 Platelet Estimate Normal (Normal) 11/06/16 05:35 Hypochromasia Present (Not Present) A 11/06/16 05:35 Anisocytosis 1+ (Not Present) A 11/06/16 05:35 PT 23.6 Seconds (9.4-12.1) H 11/06/16 05:35 INR 2.2 11/06/16 05:35 APTT 39.3 Seconds (26.0-36.0) H 11/06/16 05:35 VBG pH 7.31 pH Units (7.32-7.42) L 11/05/16 23:12 VBG pCO2 35 mmHg (41-51) L 11/05/16 23:12 VBG pO2 29 mmHg (25-40) 11/05/16 23:12 VBG HCO3 17.6 mEq/L (21-27) L 11/05/16 23:12 Sodium 134 mEq/L (136-145) L 11/06/16 05:35 Potassium 2.7 mEq/L (3.5-4.5) L 11/06/16 05:35 Chloride 104 mEq/L (98-109) 11/06/16 05:35 Carbon Dioxide 19 mEq/L (19-29) 11/06/16 05:35 BUN < 2 mg/dL (7-20) L 11/06/16 05:35 Creatinine 0.65 mg/dL (0.57-1.11) 11/06/16 05:35 Est GFR ( Amer) > 60 (> 60) 11/06/16 05:35 Est GFR (Non-Af Amer) > 60 (> 60) 11/06/16 05:35 BUN/Creatinine Ratio 3 (6-26) L 11/06/16 05:35 Glucose 139 mg/dL (70-99) H 11/06/16 05:35 Calculated Osmolality 276 (280-300) L 11/06/16 05:35 Lactic Acid 1.2 mmol/L (0.5-2.2) 11/06/16 05:35 Calcium 8.7 mg/dL (8.6-10.8) 11/06/16 05:35 Magnesium 1.5 mg/dL (1.6-2.6) L 11/06/16 05:35 Total Bilirubin 3.5 mg/dL (0.2-1.2) H 11/06/16 05:35 Direct Bilirubin 2.3 mg/dL (0.0-0.5) H 11/06/16 05:35 Indirect Bilirubin 1.2 mg/dL (0.0-1.2) 11/06/16 05:35 AST 110 Units/L (5-34) H 11/06/16 05:35 ALT 86 Units/L (0-55) H 11/06/16 05:35 Alkaline Phosphatase 327 Units/L (38-126) H 11/06/16 05:35 Serum Total Protein 5.5 g/dL (6.0-8.3) L 11/06/16 05:35 Albumin 2.3 g/dL (3.5-5.0) L 11/06/16 05:35 Globulin 3.2 g/dL (2.4-3.5) 11/06/16 05:35 Albumin/Globulin Ratio 0.7 (1.1-2.2) L 11/06/16 05:35 Lipase < 10 Units/L (8-78) 11/05/16 22:01 Urine Color Yellow (Yellow) 11/05/16 20:15 Urine Clarity Clear (Clear) 11/05/16 20:15 Urine pH 6.5 pH Units (5.0-8.0) 11/05/16 20:15 Ur Specific [place] 1.017 (1.010-1.025) 11/05/16 20:15 Urine Protein Negative mg/dL (Neg-Trace) 11/05/16 20:15 Urine Glucose (UA) Normal mg/dL (Normal) 11/05/16 20:15 Urine Ketones Trace mg/dL (Negative) H 11/05/16 20:15 Urine Blood Negative (Negative) 11/05/16 20:15 Urine Nitrite Negative (Negative) 11/05/16 20:15 Urine Bilirubin Small (Negative) H 11/05/16 20:15 Urine Urobilinogen Normal mg/dL (Normal) 11/05/16 20:15 Ur Leukocyte Esterase Moderate (Negative) H 11/05/16 20:15 Urine Microscopic RBC 5-15 per hpf (0-3) H 11/05/16 20:15 Urine Microscopic WBC 5-15 per hpf (0-3) H 11/05/16 20:15 Ur Squamous Epith Cells Many per lpf (None-Few) H 11/05/16 20:15 Urine Bacteria None Seen per hpf (None-Few) 11/05/16 20:15 Hyaline Casts None Seen per lpf (None-Few) 11/05/16 20:15 Ur Culture Indicated? YES (NO) A 11/05/16 20:15 Salicylates < 5.0 mg/dL (15-30) L 11/05/16 22:01 Urine Opiates Screen Negative ng/mL (Vpuxxw=657) 11/05/16 20:15 Acetaminophen 30.0 mcg/mL (10-30) 11/05/16 22:01 Ur Barbiturates Screen Negative ng/mL (Bkeovn=968) 11/05/16 20:15 Ur Phencyclidine Scrn Negative ng/mL (Cutoff=25) 11/05/16 20:15 Ur Amphetamines Screen Negative ng/mL (Xhvzbw=5378) 11/05/16 20:15 U Benzodiazepines Scrn Negative ng/mL (Udjbby=191) 11/05/16 20:15 Urine Cocaine Screen Negative ng/mL (Cutoff= 300) 11/05/16 20:15 U Marijuana (THC) Screen Negative ng/mL (Cutoff = 50) 11/05/16 20:15 Consult Discharge Plan - Plan Referrals: Ani Hilton, AUTOMOTIVE SERVICE TECHNICIAN [Primary Care Provider] -
[2016-11-06] MEDS: Pantoprazole 40 MG VIAL IVP SCH ×2 (09:45→17:29)
[2016-11-06] MEDS: *HR* Morphine 2 MG/ML SYRINGE IVP PRN ×2 (10:23→14:25)
[2016-11-06] MEDS ORDERED: MetroNIDAZOLE 500 MG/100 ML 500 MG/100 ML BAG IVPB SCH (12:35)
--- NOTE | 2016-11-06 14:58 | Internal Med Progress Note ---
Date of Encounter: 11/06/16 Time of Encounter: 10:40 - Assessment and plan (1) Pneumonia Current Visit: Yes Status: Suspected Assessment and plan: Patient with acute bilateral bronchopneumonia per CT scan. We will treat with IV antibiotics. Monitor vital signs closely. Follow blood cultures. IV hydration. Qualifiers: Pneumonia type: due to Pneumococcus Laterality: bilateral Lung location: lower lobe of lung Qualified Code(s): J13 - Pneumonia due to Streptococcus pneumoniae (2) Bacterial enterocolitis Current Visit: Yes Status: Suspected Assessment and plan: CT scan of the abdomen and pelvis also suggest presence of enterocolitis. We will treat empirically with antibiotics for now. We will send for stool studies if patient develops diarrhea. (3) BRBPR (bright red blood per rectum) Current Visit: Yes Status: Acute Assessment and plan: No further episodes of bleeding per rectum. Patient does report a history of GERD. Will keep patient on PPI. Monitor hemoglobin levels. (4) Pancreatitis Current Visit: Yes Status: Chronic Assessment and plan: Patient is abdominal pain could be related to her chronic pancreatitis. Will place patient on Creon. Treat symptomatically. Qualifiers: Chronicity: chronic Pancreatitis type: other Qualified Code(s): K86.1 - Other chronic pancreatitis (5) Suicidal behavior Current Visit: Yes Status: Acute Assessment and plan: Patient denies suicidal ideation at this time. Evaluated by psychiatry. Denies taking Tylenol with the intent this self-harm. Can discontinue suicide precautions. Qualifiers: Qualified Code(s): T14.91 - Suicide attempt (6) Tylenol overdose Current Visit: Yes Status: Acute Assessment and plan: Liver enzymes trending down. INR remains elevated at 2.2. We will continue to monitor hepatic function and coagulation profile. Qualifiers: Encounter type: initial encounter Injury intent: accidental or unintentional Qualified Code(s): T39.1X1A - Poisoning by 4-Aminophenol derivatives, accidental (unintentional), initial encounter - Subjective Interval history: Patient complains of intractable abdominal pain in the epigastric region. She says this was the reason why she was taking Tylenol. She has had this pain for the past week. Denies any alcohol use. It is nonradiating. Denies any fever or chills. No shortness of breath. - Constitutional Vitals: Temp Pulse Resp BP Pulse Ox 98.4 F 115 18 122/66 99 11/06/16 12:12 11/06/16 12:12 11/06/16 12:12 11/06/16 12:12 11/06/16 12:12 General appearance: Present: cooperative, disheveled, A&O X 3, answers questions appropriately - Eye Eye exam: Present: EOMI, PERRL, conjuntiva pink, sclera anicteric - Respiratory Respiratory exam: Present: CTAB. Absent: accessory muscle use, rales, rhonchi, wheezes - Cardiovascular Cardiovascular exam: Present: RRR, +S1, +S2. Absent: diastolic murmur, gallop, rubs, systolic murmur - GI/Abdominal GI/Abdominal exam: Present: normal bowel sounds, soft, tenderness (epigastric), no peritoneal signs. Absent: distended - Extremities Exam Extremities exam: Present: warm, radial pulses palpable and symmetrical. Absent : calf tenderness, cyanotic, pedal edema - Neurological Exam Neurological exam: Present: alert, CN II-XII intact, oriented X3, no focal deficits. Absent: facial droop, speech deficit - Skin Skin exam: Present: dry, intact Additional comments: Multiple healing scabs noted on skin of the face Internal Medicine: Result - Labs CBC & Chem 7: 11/06/16 05:35 11/06/16 05:35 Labs: Short CBC 11/06/16 Range/Units 05:35 WBC 3.9 L (4.3-11.1) K/mcL Hgb 11.0 L (11.5-15.4) g/dL Hct 30.3 L (35.3-44.9) % Plt Count 156 (140-400) K/mcL Neutrophils # 2.5 (1.6-8.9) K/mcL BMP 11/06/16 05:35 Sodium 134 L Potassium 2.7 L Chloride 104 Carbon Dioxide 19 BUN < 2 L Creatinine 0.65 Glucose 139 H Calcium 8.7 Liver Function 11/06/16 Range/Units 05:35 Total Bilirubin 3.5 H (0.2-1.2) mg/dL Direct Bilirubin 2.3 H (0.0-0.5) mg/dL AST 110 H (5-34) Units/L ALT 86 H (0-55) Units/L Alkaline Phosphatase 327 H (38-126) Units/L Albumin 2.3 L (3.5-5.0) g/dL - ABG Interpretation ABG results: PT/INR, D-dimer PT 23.6 Seconds (9.4-12.1) H 11/06/16 05:35 - Impressions Impressions Abdomen/Pelvis CT 11/06/16 10:53 IMPRESSION: 1. New patchy multifocal bibasilar opacities which may represent bronchopneumonia. 2. Redemonstration of chronic pancreatitis with mild interval improvement of peripancreatic inflammatory changes seen on the prior exam. No evidence of a pseudocyst. 3. Subtle small bowel and colonic findings which may relate to acute enterocolitis with no obstruction or perforation. 4. Stable mild common bile duct prominence measuring 1.1 cm with no interval change since the prior exam. 5. Nonspecific body wall edema and moderate pelvic ascites. D/ / 11/06/2016 11:47:51 Elvis Stanley MD / jose Interpreting Provider: Elvis Stanley MD Consult Discharge Plan - Plan Referrals: Ani Hilton, [facility] [Primary Care Provider] -
[2016-11-06] MEDS: Levofloxacin 750 MG/150 ML 750 MG/150 ML BAG IVPB SCH (15:28)
[2016-11-06] MEDS: 0.9 % Sodium Chloride w KCl 20 MEQ/1,000 ML MLS IVC SCH ×2 (15:34→23:32)
[2016-11-06 15:44] LABS: INR 1.8; Prothrombin Time 20.1 Seconds (9.4-12.1)
[2016-11-06 15:47] LABS: Activated Partial Thrombo Time 37.7 Seconds (26.0-36.0)
[2016-11-06 15:49] LABS: Carbon Dioxide 21 mEq/L (19-29); Chloride 102 mEq/L (98-109); Potassium 3.2 mEq/L (3.5-4.5); Sodium 130 mEq/L (136-145)
[2016-11-06 15:50] LABS: Alanine Aminotransferase 72 Units/L (0-55); Albumin 2.2 g/dL (3.5-5.0); Albumin/Globulin Ratio 0.7 (1.1-2.2); Alkaline Phosphatase 306 Units/L (38-126); Aspartate Amino Transferase 89 Units/L (5-34); BUN/Creatinine Ratio 3 (6-26); Bilirubin,Direct 1.8 mg/dL (0.0-0.5); Bilirubin,Indirect 1.1 mg/dL (0.0-1.2); Bilirubin,Total 2.9 mg/dL (0.2-1.2); Calcium 8.2 mg/dL (8.6-10.8); Glucose 242 mg/dL (70-99); Osmolality,Calculated 274 (280-300); Total Protein 5.2 g/dL (6.0-8.3); eGFR For African Americans > 60 (> 60); eGFR For Non-African Americans > 60 (> 60)
[2016-11-06 15:56] LABS: Blood Urea Nitrogen < 2 mg/dL (7-20)
--- NOTE | 2016-11-06 15:57 | Electrocardiograph Report ---
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
[2016-11-06] MEDS ORDERED: Magnesium Sulfate 4 GM in D5% in Water 100 ML IVPB ONE (17:17)
[2016-11-06] MEDS ORDERED: D5% in Water 1,000 ML IVC PRN (17:18)
[2016-11-06] MEDS ORDERED: Dextrose Gel 15 GM PO PRN ×2 (17:18)
[2016-11-06] MEDS ORDERED: *HR* Dextrose 50 % in Water (Syg) 50 ML SYRINGE IVP PRN (17:18)
[2016-11-06] MEDS: MetroNIDAZOLE 500 MG/100 ML 500 MG/100 ML BAG IVPB SCH (17:30)
[2016-11-06] MEDS: Insulin LISPRO 300 UNITS/3 ML VIAL SQ SCH (17:37)
[2016-11-06] MEDS: Magnesium Sulfate 2 GM in D5% in Water 100 ML IVPB SCH ×2 (18:38→22:44)
[2016-11-06] MEDS: Nicotine 21 MG PATCH.TD24 TD SCH (18:39)
[2016-11-06] MEDS ORDERED: 0.9 % Sodium Chloride 500 ML IVC ONE (22:17)
[2016-11-06 22:51] LABS: VBG HCO3 21.6 mEq/L (21-27); VBG PH 7.41 pH Units (7.32-7.42)
[2016-11-06 22:54] LABS: INR 1.9
[2016-11-06 22:56] LABS: Activated Partial Thrombo Time 37.2 Seconds (26.0-36.0)
[2016-11-06 23:02] LABS: Albumin 2.1 g/dL (3.5-5.0); Bilirubin,Direct 2.2 mg/dL (0.0-0.5); Bilirubin,Indirect 1.1 mg/dL (0.0-1.2); Bilirubin,Total 3.3 mg/dL (0.2-1.2); Total Protein 4.9 g/dL (6.0-8.3)
[2016-11-06 23:03] LABS: Albumin/Globulin Ratio 0.8 (1.1-2.2); Globulin 2.8 g/dL (2.4-3.5)
[2016-11-07] MEDS: *HR* Morphine 2 MG/ML SYRINGE IVP PRN ×7 (00:08→23:18)
[2016-11-07] MEDS: MetroNIDAZOLE 500 MG/100 ML 500 MG/100 ML BAG IVPB SCH ×3 (02:50→18:38)
[2016-11-07] MEDS ORDERED: 0.9 % Sodium Chloride 500 ML IVC ONE (04:58)
[2016-11-07] MEDS: Pantoprazole 40 MG VIAL IVP SCH ×2 (05:26→18:39)
[2016-11-07 05:50] LABS: Hematocrit 22.1 % (35.3-44.9); Hemoglobin 8.3 g/dL (11.5-15.4); Immature Granulocytes % 1.8 % (0-4); Lymphocytes # 1.6 K/mcL (0.6-4.6); Lymphocytes % 42.6 %; Mean Corpuscular Hemoglobin 35.9 pg (28.0-33.3); Mean Corpuscular Volume 95.7 fL (83.0-100.0); Mean Platelet Volume 8.9 fL (9.4-12.4); Monocytes # 0.2 K/mcL (0.0-1.3); Monocytes % 3.9 %; Platelet Count 103 K/mcL (140-400); Red Blood Count 2.31 M/mcL (3.82-4.97); Segmented Neutrophils % 51.7 %
[2016-11-07 06:03] LABS: Alanine Aminotransferase 56 Units/L (0-55); Albumin/Globulin Ratio 0.7 (1.1-2.2); Alkaline Phosphatase 252 Units/L (38-126); Aspartate Amino Transferase 63 Units/L (5-34); BUN/Creatinine Ratio 4 (6-26); Bilirubin,Total 3.4 mg/dL (0.2-1.2); Blood Urea Nitrogen < 2 mg/dL (7-20); Calcium 7.4 mg/dL (8.6-10.8); Carbon Dioxide 19 mEq/L (19-29); Chloride 106 mEq/L (98-109); Globulin 2.7 g/dL (2.4-3.5); Glucose 169 mg/dL (70-99); Magnesium 1.8 mg/dL (1.6-2.6); Osmolality,Calculated 276 (280-300); Potassium 2.9 mEq/L (3.5-4.5); Sodium 133 mEq/L (136-145); Total Protein 4.6 g/dL (6.0-8.3); eGFR For African Americans > 60 (> 60); eGFR For Non-African Americans > 60 (> 60)
[2016-11-07 06:04] LABS: Albumin 1.9 g/dL (3.5-5.0)
[2016-11-07 06:06] LABS: Mean Corpuscular HGB Conc 37.6 g/dL (31.6-35.5)
[2016-11-07 06:10] LABS: Anisocytosis 1+ (Not Present); Macrocytosis Present (Not Present); Platelet Estimate Decreased (Normal); Poikilocytosis 1+ (Not Present); Target Cells 1+ (Not Present)
[2016-11-07] MEDS: Potassium Chloride Elixir 20 MEQ/15 ML UDC PO SCH ×2 (09:28→20:17)
[2016-11-07] MEDS: Levofloxacin 750 MG/150 ML 750 MG/150 ML BAG IVPB SCH (09:29)
[2016-11-07] MEDS: Insulin LISPRO 300 UNITS/3 ML VIAL SQ SCH ×3 (09:30→18:37)
[2016-11-07] MEDS: Nicotine 21 MG PATCH.TD24 TD SCH (09:30)
[2016-11-07] MEDS: 0.9 % Sodium Chloride w KCl 40 MEQ/1,000 ML MLS IVC SCH ×2 (09:39→18:37)
--- NOTE | 2016-11-07 14:07 | Internal Med Progress Note ---
Date of Encounter: 11/07/16 Time of Encounter: 09:50 - Assessment and plan (1) Pneumonia Current Visit: Yes Status: Suspected Assessment and plan: Continue current antibiotics. Possible aspiration versus community-acquired pneumonia. Monitor vital signs. No respiratory distress at this time. Moderate risk for complications. Qualifiers: Pneumonia type: due to Pneumococcus Laterality: bilateral Lung location: lower lobe of lung Qualified Code(s): J13 - Pneumonia due to Streptococcus pneumoniae (2) Bacterial enterocolitis Current Visit: Yes Status: Suspected Assessment and plan: On antibiotics. (3) BRBPR (bright red blood per rectum) Current Visit: Yes Status: Acute Assessment and plan: Pneumonia episodes but patient having a decrease in her hemoglobin levels. Will check stool for occult blood. Monitor blood counts. We will consult GI. (4) Pancreatitis Current Visit: Yes Status: Chronic Assessment and plan: Continue supportive care. Pain control. On Creon. Qualifiers: Chronicity: chronic Pancreatitis type: other Qualified Code(s): K86.1 - Other chronic pancreatitis (5) Suicidal behavior Current Visit: Yes Status: Ruled-out Assessment and plan: Has been cleared from a psychiatric standpoint. Qualifiers: Qualified Code(s): T14.91 - Suicide attempt (6) Tylenol overdose Current Visit: Yes Status: Acute Assessment and plan: Liver enzymes continued to trend down. Has completed acetylcysteine therapy. Qualifiers: Encounter type: initial encounter Injury intent: accidental or unintentional Qualified Code(s): T39.1X1A - Poisoning by 4-Aminophenol derivatives, accidental (unintentional), initial encounter (7) Anemia Current Visit: Yes Status: Acute Assessment and plan: Concern for acute blood loss anemia from GI bleed. Check iron, folic acid levels. Monitor blood counts. Will recheck INR. Consult GI. Qualifiers: Anemia type: other cause Other causes of anemia: acute posthemorrhagic Qualified Code(s): D62 - Acute posthemorrhagic anemia - Subjective Interval history: Continues to have intractable abdominal pain. Radiating to the back. No fever or chills. Able to tolerate oral diet. No shortness of breath or chest pain. - Constitutional Vitals: Temp Pulse Resp BP Pulse Ox 99.0 F 102 14 103/59 97 11/07/16 11:00 11/07/16 11:00 11/07/16 11:00 11/07/16 11:00 11/07/16 11:00 General appearance: Present: cooperative, disheveled, A&O X 3, answers questions appropriately - Neck Neck exam general surgery: Present: supple, trachea midline. Absent: lymphadenopathy - Respiratory Respiratory exam: Present: CTAB. Absent: accessory muscle use, rales, rhonchi, wheezes - Cardiovascular Cardiovascular exam: Present: RRR, +S1, +S2. Absent: diastolic murmur, gallop, rubs, systolic murmur - GI/Abdominal GI/Abdominal exam: Present: normal bowel sounds, soft, no peritoneal signs. Absent: distended, tenderness - Extremities Exam Extremities exam: Present: warm, radial pulses palpable and symmetrical. Absent : calf tenderness, cyanotic, pedal edema - Neurological Exam Neurological exam: Present: alert, oriented X3, no focal deficits. Absent: facial droop, speech deficit - Skin Skin exam: Present: dry, intact Internal Medicine: Result - Labs CBC & Chem 7: 11/07/16 05:30 11/07/16 05:30 Labs: Short CBC 11/07/16 Range/Units 05:30 WBC 3.8 L (4.3-11.1) K/mcL Hgb 8.3 L D (11.5-15.4) g/dL Hct 22.1 L (35.3-44.9) % Plt Count 103 L (140-400) K/mcL Neutrophils # 2.0 (1.6-8.9) K/mcL BMP 11/06/16 11/07/16 15:21 05:30 Sodium 130 L 133 L Potassium 3.2 L 2.9 L Chloride 102 106 Carbon Dioxide 21 19 BUN < 2 L < 2 L Creatinine 0.70 0.56 L Glucose 242 H 169 H Calcium 8.2 L 7.4 L Liver Function 11/06/16 11/06/16 11/07/16 Range/Units 15:21 22:40 05:30 Total Bilirubin 2.9 H 3.3 H 3.4 H (0.2-1.2) mg/dL Direct Bilirubin 1.8 H 2.2 H (0.0-0.5) mg/dL AST 89 H 73 H 63 H (5-34) Units/L ALT 72 H 65 H 56 H (0-55) Units/L Alkaline Phosphatase 306 H 292 H 252 H (38-126) Units/L Albumin 2.2 L 2.1 L 1.9 L (3.5-5.0) g/dL - ABG Interpretation ABG results: PT/INR, D-dimer PT 21.0 Seconds (9.4-12.1) H 11/06/16 22:40 Consult Discharge Plan - Plan Referrals: Ani Hilton, [facility] [Primary Care Provider] -
[2016-11-07 14:43] LABS: INR 2.1; Prothrombin Time 22.6 Seconds (9.4-12.1)
[2016-11-07] MEDS: Simethicone 80 MG TAB.CHEW PO PRN (18:51)
[2016-11-07] MEDS ORDERED: *HR* Morphine 2 MG/ML SYRINGE IVP PRN (20:07)
[2016-11-07 20:34] LABS: Hematocrit 21.1 % (35.3-44.9); Hemoglobin 7.9 g/dL (11.5-15.4)
[2016-11-08] MEDS: MetroNIDAZOLE 500 MG/100 ML 500 MG/100 ML BAG IVPB SCH ×3 (01:50→17:39)
[2016-11-08] MEDS: *HR* Morphine 2 MG/ML SYRINGE IVP PRN ×5 (01:51→12:52)
[2016-11-08] MEDS: 0.9 % Sodium Chloride w KCl 40 MEQ/1,000 ML MLS IVC SCH ×3 (03:02→17:38)
[2016-11-08] MEDS: Pantoprazole 40 MG VIAL IVP SCH ×2 (05:06→17:45)
[2016-11-08 05:23] LABS: Mean Platelet Volume 9.3 fL (9.4-12.4)
[2016-11-08 05:25] LABS: Eosinophils % 0.2 %; Hematocrit 20.9 % (35.3-44.9); Hemoglobin 7.7 g/dL (11.5-15.4); Immature Granulocytes % 0.4 % (0-4); Lymphocytes % 34.5 %; Mean Corpuscular HGB Conc 36.8 g/dL (31.6-35.5); Mean Corpuscular Volume 97.7 fL (83.0-100.0); Monocytes # 0.2 K/mcL (0.0-1.3); Monocytes % 3.4 %; Neutrophils # 2.8 K/mcL (1.6-8.9); Nucleated Red Blood Cells 0.4 /100 WBC (0); Red Blood Count 2.14 M/mcL (3.82-4.97); Red Cell Distribution Width 17.9 % (11.5-14.5); Segmented Neutrophils % 61.5 %
[2016-11-08 05:29] LABS: Lymphocytes # 1.6 K/mcL (0.6-4.6); Platelet Count 75 K/mcL (140-400)
[2016-11-08 05:38] LABS: % Iron Saturation 92 % (15-50); BUN/Creatinine Ratio 4 (6-26); Calcium 7.6 mg/dL (8.6-10.8); Carbon Dioxide 18 mEq/L (19-29); Chloride 110 mEq/L (98-109); Glucose 135 mg/dL (70-99); Iron 93 mcg/dL (50-170); Osmolality,Calculated 278 (280-300); Potassium 3.7 mEq/L (3.5-4.5); Sodium 135 mEq/L (136-145); Transferrin 72 mg/dL (180-382); eGFR For African Americans > 60 (> 60); eGFR For Non-African Americans > 60 (> 60)
[2016-11-08 05:39] LABS: Blood Urea Nitrogen < 2 mg/dL (7-20)
[2016-11-08 05:53] LABS: Anisocytosis 1+ (Not Present); Platelet Estimate Decreased (Normal); Schistocytes 1+ (Not Present)
[2016-11-08 05:54] LABS: Macrocytosis Present (Not Present); Poikilocytosis 1+ (Not Present)
[2016-11-08] MEDS: Potassium Chloride Elixir 20 MEQ/15 ML UDC PO SCH (08:52)
[2016-11-08] MEDS: Nicotine 21 MG PATCH.TD24 TD SCH (08:53)
[2016-11-08] MEDS: Levofloxacin 750 MG/150 ML 750 MG/150 ML BAG IVPB SCH (08:53)
[2016-11-08] MEDS: Insulin LISPRO 300 UNITS/3 ML VIAL SQ SCH ×3 (09:16→17:30)
[2016-11-08] MEDS: *HR* HYDROmorphone (PF) 1 MG/ML SYRINGE IVP PRN ×3 (14:43→21:22)
--- NOTE | 2016-11-08 15:06 | Internal Med Progress Note ---
Date of Encounter: 11/08/16 Time of Encounter: 10:35 - Assessment and plan (1) Pneumonia Current Visit: Yes Status: Suspected Assessment and plan: . Community acquired/aspiration pneumonia. Continue levofloxacin and Flagyl. Cultures have been negative. We will complete a 10 day empiric course of antibiotics. Qualifiers: Pneumonia type: due to Pneumococcus Laterality: bilateral Lung location: lower lobe of lung Qualified Code(s): J13 - Pneumonia due to Streptococcus pneumoniae (2) Bacterial enterocolitis Current Visit: Yes Status: Suspected Assessment and plan: Continue antibiotics (3) BRBPR (bright red blood per rectum) Current Visit: Yes Status: Acute Assessment and plan: No new episodes. Patient's hemoglobin levels continued to decrease slowly. We will transfuse 1 unit of packed red blood cells. Consult GI for further evaluation tomorrow. (4) Pancreatitis Current Visit: Yes Status: Chronic Assessment and plan: With acute flareup. Continue Creon. Remains in pain related to pancreatitis. We will change morphine to IV Dilaudid. High risk for complications. Qualifiers: Chronicity: chronic Pancreatitis type: other Qualified Code(s): K86.1 - Other chronic pancreatitis (5) Suicidal behavior Current Visit: Yes Status: Ruled-out Qualifiers: Qualified Code(s): T14.91 - Suicide attempt (6) Tylenol overdose Current Visit: Yes Status: Acute Assessment and plan: Resolving. We will follow liver function panel. Qualifiers: Encounter type: initial encounter Injury intent: accidental or unintentional Qualified Code(s): T39.1X1A - Poisoning by 4-Aminophenol derivatives, accidental (unintentional), initial encounter (7) Anemia Current Visit: Yes Status: Acute Assessment and plan: Hemoglobin 7.7 today. Will transfuse 1 unit packed red blood cells. Qualifiers: Anemia type: other cause Other causes of anemia: acute posthemorrhagic Qualified Code(s): D62 - Acute posthemorrhagic anemia - Subjective Interval history: Remains in pain. Requesting Dilaudid instead of morphine to control pain better. Also wants to try some potato soup today. No cachorro hematemesis or hematochezia No shortness of breath or chest pain.. - Constitutional Vitals: Temp Pulse Resp BP Pulse Ox 98.4 F 91 14 115/72 95 11/08/16 11:05 11/08/16 11:05 11/08/16 11:05 11/08/16 11:05 11/08/16 11:05 General appearance: Present: cooperative, disheveled, A&O X 3, answers questions appropriately - Neck Neck exam general surgery: Present: supple, trachea midline. Absent: lymphadenopathy - Respiratory Respiratory exam: Present: CTAB. Absent: accessory muscle use, rales, rhonchi, wheezes - Cardiovascular Cardiovascular exam: Present: RRR, +S1, +S2. Absent: diastolic murmur, gallop, rubs, systolic murmur - GI/Abdominal GI/Abdominal exam: Present: normal bowel sounds, soft, tenderness (Epigastric), no peritoneal signs. Absent: distended - Extremities Exam Extremities exam: Present: warm, radial pulses palpable and symmetrical. Absent : calf tenderness, cyanotic, pedal edema - Neurological Exam Neurological exam: Present: alert, oriented X3, no focal deficits. Absent: facial droop, speech deficit Internal Medicine: Result - Labs CBC & Chem 7: 11/08/16 04:59 11/08/16 04:59 Labs: Short CBC 11/07/16 11/08/16 Range/Units 20:16 04:59 WBC 4.5 (4.3-11.1) K/mcL Hgb 7.9 L 7.7 L (11.5-15.4) g/dL Hct 21.1 L 20.9 L (35.3-44.9) % Plt Count 75 L (140-400) K/mcL Neutrophils # 2.8 (1.6-8.9) K/mcL BMP 11/08/16 04:59 Sodium 135 L Potassium 3.7 Chloride 110 H Carbon Dioxide 18 L BUN < 2 L Creatinine 0.53 L Glucose 135 H Calcium 7.6 L - ABG Interpretation ABG results: PT/INR, D-dimer PT 22.6 Seconds (9.4-12.1) H 11/07/16 14:25 Consult Discharge Plan - Plan Referrals: Ani Hilton, [facility] [Primary Care Provider] -
[2016-11-08] MEDS ORDERED: *HR* Phytonadione 10 MG/ML AMPUL SQ ONE (15:25)
[2016-11-08] MEDS ORDERED: 0.9 % Sodium Chloride 500 ML ONE (15:35)
[2016-11-08] MEDS: Simethicone 80 MG TAB.CHEW PO PRN (16:13)
[2016-11-08 17:43] LABS: C.difficile Toxin A/B by PCR Not detected (Not detect); Campylobacter by PCR Not detected (Not detect)
[2016-11-08] MEDS: 0.9 % Sodium Chloride w KCl 20 MEQ/1,000 ML MLS IVC SCH (17:43)
[2016-11-08 17:44] LABS: Adenovirus F 40/41 PCR Not detected (Not detect); Astrovirus PCR Not detected (Not detect); Cryptosporidium by PCR Not detected (Not detect); Cyclospora cayetanensis PCR Not detected (Not detect); E. coli O157 by PCR Not detected (Not detect); Entamoeba histolytica PCR Not detected (Not detect); Enteroaggregative E.coli(EAEC) Not detected (Not detect); Enteropathogenic E.coli(EPEC) ***DETECTED*** (Not detect); Enterotoxigenic E.coli (ETEC) Not detected (Not detect); Giardia lamblia PCR Not detected (Not detect); Norovirus GI/GII PCR Not detected (Not detect); Plesiomonas shigelloides PCR Not detected (Not detect); Rotavirus A PCR Not detected (Not detect); Salmonella PCR Not detected (Not detect); Sapovirus PCR Not detected (Not detect); Shig/EnteroinvasiveE coli EIEC Not detected (Not detect); Shigalike tox-prod E coli STEC Not detected (Not detect); Vibrio PCR Not detected (Not detect); Vibrio cholerae PCR Not detected (Not detect); Yersinia enterocolitica PCR Not detected (Not detect)
[2016-11-09] MEDS: *HR* HYDROmorphone (PF) 1 MG/ML SYRINGE IVP PRN ×8 (00:22→22:23)
[2016-11-09] MEDS: MetroNIDAZOLE 500 MG/100 ML 500 MG/100 ML BAG IVPB SCH ×3 (02:31→19:50)
[2016-11-09 03:55] LABS: Basophils % 0.2 %; Eosinophils % 0.4 %; Hematocrit 24.3 % (35.3-44.9); Hemoglobin 8.7 g/dL (11.5-15.4); Immature Granulocytes % 0.8 % (0-4); Immature Platelets 3.4 % (1.1-6.1); Lymphocytes % 33.4 %; Mean Corpuscular HGB Conc 35.8 g/dL (31.6-35.5); Mean Corpuscular Hemoglobin 35.2 pg (28.0-33.3); Mean Corpuscular Volume 98.4 fL (83.0-100.0); Mean Platelet Volume 9.7 fL (9.4-12.4); Monocytes # 0.2 K/mcL (0.0-1.3); Red Blood Count 2.47 M/mcL (3.82-4.97); Red Cell Distribution Width 19.9 % (11.5-14.5); Segmented Neutrophils % 61.2 %
[2016-11-09 04:09] LABS: Albumin/Globulin Ratio 0.6 (1.1-2.2); Bilirubin,Direct 1.7 mg/dL (0.0-0.5); Bilirubin,Indirect 0.8 mg/dL (0.0-1.2); Bilirubin,Total 2.5 mg/dL (0.2-1.2); Globulin 2.9 g/dL (2.4-3.5); Total Protein 4.7 g/dL (6.0-8.3)
[2016-11-09 04:11] LABS: Albumin 1.8 g/dL (3.5-5.0)
[2016-11-09 04:19] LABS: Lymphocytes # 1.6 K/mcL (0.6-4.6); Platelet Count 64 K/mcL (140-400)
[2016-11-09 04:21] LABS: Hypersegmented Neutrophils Present (Not Present); Platelet Estimate Decreased (Normal)
[2016-11-09 04:22] LABS: Anisocytosis 2+ (Not Present); Large Platelets Present (Not Present); Polychromasia 1+ (Not Present); Target Cells 1+ (Not Present)
[2016-11-09] MEDS: Pantoprazole 40 MG VIAL IVP SCH ×2 (06:14→19:51)
[2016-11-09] MEDS: 0.9 % Sodium Chloride w KCl 20 MEQ/1,000 ML MLS IVC SCH ×2 (06:18→19:51)
[2016-11-09 06:32] LABS: INR 1.9; Prothrombin Time 20.5 Seconds (9.4-12.1)
[2016-11-09] MEDS: Levofloxacin 750 MG/150 ML 750 MG/150 ML BAG IVPB SCH (08:06)
[2016-11-09] MEDS: Nicotine 21 MG PATCH.TD24 TD SCH (08:07)
[2016-11-09] MEDS: Insulin LISPRO 300 UNITS/3 ML VIAL SQ SCH ×3 (08:13→18:55)
--- NOTE | 2016-11-09 10:28 | Gastroenterology Consult Note ---
<Cheng Ng - Last Filed: 11/09/16 17:55> Date of Encounter: 11/09/16 Time of Encounter: 10:18 - Assessment and plan (1) Anemia Status: Acute Assessment and plan: hg has dropped from 10.6 to 7.7. EGD today, if negative, colonoscopy tomorrow. Qualifiers: Anemia type: other cause Other causes of anemia: other cause, not classified Qualified Code(s): D64.89 - Other specified anemias (2) BRBPR (bright red blood per rectum) Status: Acute Assessment and plan: CT abdomen/pelvis showed new patchy multifocal bibasilar opacities, chronic pancreatitis with mild improvement of peripancreatic inflammatory changes, no evidence of pseudocyst, acute enterocolitis without obstruction or perforation, stable mild common bile duct prominence. last endoscopy was 11/06/10 done for abdominal pain that showed one non bleeding linear gastric ulcer with no stigmata of bleeding in the gastric antrum, measuring 6mm. Biopsies done for H.pylori. normal Duodenum, mild nodularity at the GE junction. Plan: NPO diet EGD later today If EGD negative, then will consider colonoscopy. obtain records from patient's linoleum printer in [place] regarding management of her chronic pancreatitis. (3) Acute on chronic pancreatitis Status: Acute Assessment and plan: management per primary team. patient is on creon and IV pain medications. will obtain records from patient's linoleum printer in [place]. (4) Transaminitis Status: Resolved Assessment and plan: elevated upon arrival but currently resolved. - Time Spent With Patient Total time spent is greater than 50% in coordination of care (as documented) at patient's floor/unit and/or counseling patient: GI History of Present Illness - Data of Consult Requesting Physician: Mohsen Holland MD - Consult Narrative History of present illness: Ms. Chi is a 46 year old female with PMHx of GERD, chronic pancreatitis, asthma , anxiety, bipolar disorder, depression. Patient was admitted to [facility] on 11/06/16 with concern about possibly taking too much tylenol. She complains of taking an excessive amount of tylenol over the past four days. Tylenol level upon arrival was 30. Patient was also complaining of epigastric and right upper quadrant pain with nausea and vomiting. She also complains of bright red blood per rectum. There was concern for suicidal ideation, and psychiatry has been consulted. Per psychiatry note, patient is not suicidal/homicidal and is not a threat to herself or anyone else, and she denies suicidal behavior. She is currently being treated for community acquired/aspiration pneumonia and is on levaquin. she is on flagyl for enterocolitis per primary team. stool cultures positve for EPEC. LFTs were elevated on arrival but are now normal. Patient sees Dr. Alexandra, linoleum printer in [place] for her chronic pancreatitis. She is scheduled to start seeing a paint stockman as well. Kade denies any alcohol use, and denies history of alcoholism. she has noticed bright red blood per rectum that started three weeks ago. she has noticed this blood in the toilet and while wiping. she denies hematemesis. she reports chronic abdominal and back pain. she denies hematuria. she never had a colonoscopy before and does not take ibuprofen. she is not on any blood thinners. she denies nausea, vomiting. she reports diarrhea, and denies fever/ chills. she does admit to some chest tightness. she admits to shortness of breath secondary to her asthma. Past Med Surg Social Fam HX - Past Medical History Medical history: asthma, GERD, other Psychiatric history: anxiety, bipolar, depression - Past Surgical History Surgical History: , cholecystectomy - Social History Smoking Status: Current every day smoker Smokeless Tobacco Status: No Alcohol use: none Drug use: none - Family History Father Adopted: No Family Member Ethnicity: Non- Living Status: Hx Family Psychosocial Disorders: Yes Mother Adopted: No Family Member Ethnicity: Non- Living Status: Still Living Hx Family Cardiac Disorders: Yes Hx Family Respiratory Disorders: No Hx Family Cancer: No Hx Family GI Disorders: No Hx Family Endocrine Disorder: Yes Hx Family Neuromuscular Disorders: No Hx Family Psychosocial Disorders: Yes All systems PM: reviewed and no additional remarkable complaints except as stated - Constitutional Vitals: Temp Pulse Resp BP Pulse Ox 98.6 F 72 16 112/63 100 11/09/16 08:08 11/09/16 08:08 11/09/16 08:08 11/09/16 08:08 11/09/16 08:17 - Head Head exam: Present: normocephalic Additional comments: scratches noted throughout her face. - Respiratory Respiratory exam: Present: CTAB - Cardiovascular Cardiovascular exam: Present: RRR, +S1, +S2 - GI/Abdominal GI/Abdominal exam: Present: distended, firm Additional comments: severe epigastric and right upper quadrant tenderness. tattoos noted on abdomen. - Extremities Exam Extremities exam: Absent: cyanotic, pedal edema - Neurological Exam Neurological exam: Present: alert, oriented X3, no focal deficits - Psychiatric Psychiatric exam: Present: anxious Results - Labs CBC & Chem 7: 11/09/16 03:40 11/08/16 04:59 Labs: Last Result Calcium 7.6 mg/dL (8.6-10.8) L 11/08/16 04:59 Iron 93 mcg/dL (50-170) 11/08/16 04:59 % Saturation 92 % (15-50) H 11/08/16 04:59 Transferrin 72 mg/dL (180-382) L 11/08/16 04:59 Stool Occult Blood Negative (Negative) 11/08/16 14:40 Salicylates < 5.0 mg/dL (15-30) L 11/05/16 22:01 Urine Opiates Screen Negative ng/mL (Rtwiqd=[id number]) 11/05/16 20:15 Entire Visit Hgb 8.7 g/dL (11.5-15.4) L 11/09/16 03:40 Hct 24.3 % (35.3-44.9) L 11/09/16 03:40 PT 20.5 Seconds (9.4-12.1) H 11/09/16 06:10 Total Bilirubin 2.5 mg/dL (0.2-1.2) H 11/09/16 03:40 AST 22 Units/L (5-34) 11/09/16 03:40 ALT 36 Units/L (0-55) 11/09/16 03:40 Lipase < 10 Units/L (8-78) 11/05/16 22:01 Acetaminophen 30.0 mcg/mL (10-30) 11/05/16 22:01 - ABG ABG results: PT/INR, D-dimer PT 20.5 Seconds (9.4-12.1) H 11/09/16 06:10 Consult Discharge Plan - Plan Instructions: Pancreatitis (DC) Referrals: Nash Suarez DO [Partnered Physician] - 11/18/16 (December 02 9:35am) Ani Hilton, [employer] [Primary Care Provider] - 11/18/16 1:15 pm Prescriptions: levoFLOXacin [Levaquin] 750 mg PO DAILY #5 tab Magic Mouthwash 5 ml PO TID #200 ml metroNIDAZOLE [Flagyl] 500 mg PO Q8H #15 tab Naproxen [Naprosyn] 250 mg PO BID PRN #14 tablet PRN Reason: Pain Nicotine Patch [Nicoderm] 21 mg TD DAILY #14 Simethicone [Gas-X] 80 mg PO TID PRN #14 PRN Reason: Dyspepsia <GulZander - Last Filed: 11/17/16 08:27> Date of Encounter: 11/09/16 Time of Encounter: 13:00 - Time Spent With Patient Total time spent is greater than 50% in coordination of care (as documented) at patient's floor/unit and/or counseling patient: GI History of Present Illness - Data of Consult Requesting Physician: Cornelia Linares MD - Consult Narrative History of present illness: Ms. Chi is a 46 year old female - Constitutional Vitals: Temp Pulse Resp BP Pulse Ox 98.5 F 90 16 91/54 98 11/13/16 04:00 11/13/16 04:00 11/13/16 04:00 11/13/16 04:00 11/13/16 07:54 Results - Labs CBC & Chem 7: 11/13/16 04:10 11/13/16 04:10 Labs: Last Result Calcium 8.2 mg/dL (8.6-10.8) L 11/13/16 04:10 Iron 93 mcg/dL (50-170) 11/08/16 04:59 % Saturation 92 % (15-50) H 11/08/16 04:59 Transferrin 72 mg/dL (180-382) L 11/08/16 04:59 Ferritin 296 ng/ml (5-204) H 11/08/16 04:59 Vitamin B12 > 2000 pg/mL (213-816) H 11/10/16 04:45 Folate 4.7 ng/mL (7.0-31.4) L 11/10/16 04:45 Stool Occult Blood Negative (Negative) 11/08/16 14:40 Salicylates < 5.0 mg/dL (15-30) L 11/05/16 22:01 Urine Opiates Screen Negative ng/mL (Kehuza=[id number]) 11/05/16 20:15 Entire Visit Hgb 9.0 g/dL (11.5-15.4) L 11/13/16 04:10 Hct 27.5 % (35.3-44.9) L 11/13/16 04:10 PT 17.6 Seconds (9.4-12.1) H 11/13/16 04:10 Ferritin 296 ng/ml (5-204) H 11/08/16 04:59 Total Bilirubin 1.1 mg/dL (0.2-1.2) 11/13/16 04:10 AST 12 Units/L (5-34) 11/13/16 04:10 ALT 16 Units/L (0-55) 11/13/16 04:10 Lipase < 10 Units/L (8-78) 11/05/16 22:01 Folate 4.7 ng/mL (7.0-31.4) L 11/10/16 04:45 Acetaminophen 30.0 mcg/mL (10-30) 11/05/16 22:01 - ABG ABG results: PT/INR, D-dimer PT 17.6 Seconds (9.4-12.1) H 11/13/16 04:10 - Attending Attestation I examined this patient and my medical decision-making was reviewed with the Resident Physician. I agree with the documented findings, disposition and treatment plan as described except to the extent set forth below.
[2016-11-09] MEDS: Ondansetron 4 MG/2 ML VIAL IVP PRN ×2 (12:36→22:23)
[2016-11-09] MEDS ORDERED: *HR* Propofol 200 MG/20 ML VIAL IVP ONE (13:34)
[2016-11-09] MEDS ORDERED: Lidocaine -MPF 2% 5 ML VIAL INFILT ONE (13:34)
[2016-11-09] MEDS ORDERED: Tetracaine/Benzocaine/Butamben 200MG/SPRAY (100SPY/BOT) MM ONE (14:02)
--- NOTE | 2016-11-09 14:02 | Anesthesia Evaluation PreOp ---
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 HX Other Medical History: GERD Anesthesia History: No Prior Anesthetic Complications, Past Anesthesia Alcohol Use: none Drug use: none Medications and Allergies Omeprazole [PriLOSEC] 40 mg PO DAILY 03/31/15 [History] Paroxetine [Paxil] 60 mg PO DAILY 03/31/15 [History] Ondansetron [Zofran] 8 mg PO Q6H PRN 11/29/15 [History] Gabapentin [Neurontin] 800 mg PO TID 10/07/16 [History] Albuterol Sulfate [Ventolin Hfa] 2 puff IH Q4H PRN 10/09/16 [History] Ascorbate Calcium [Vitamin C] 500 mg PO DAILY 10/09/16 [History] Pramipexole [Mirapex] 2 mg PO HS PRN 10/09/16 [History] Ranitidine HCl [Acid Second Worker] 150 mg PO HS 10/09/16 [History] Calcium Carbonate [Tums] 500 mg PO DAILY 10/11/16 [Rx] 3 Allergy/AdvReac Type Severity Reaction Status Date / Time promethazine [From Phenergan] Allergy Seizure Verified 10/07/16 12:55 - Meds/Allergy Pre-op Review Medications Reviewed: Yes Allergies Reviewed: Yes Beta Blockers on Current Med List: No Anesthesia Results - Labs 11/09/16 03:40 11/08/16 04:59 - Imaging EKG: report reviewed (11/05/2016 SINUS TACHYCARDIA POSSIBLE ANTERIOR MYOCARDIAL INFARCTION, OF INDETERMINATE AGE INFERIOR MYOCARDIAL INFARCTION, PROBABLY OLD) Anesthesia Exam Vital Signs/O2 Sat/Glucose, Most Recent Temp Pulse Resp BP Pulse Ox 98.2 F 82 16 107/63 98 11/09/16 11:29 11/09/16 11:29 11/09/16 11:29 11/09/16 11:29 11/09/16 11:29 Blood Glucose* 101 Height: 5'6''/1.68 m Weight: 143 lbs/65.1 kg NPO (# of Hours): 8 Pain Scale: 8 (back) Pain Scale Used: Numeric (1 - 10) (0) - HEENT Pupil (Motor): EOMI Mallampati: III Teeth: Missing (no lower teeth, broken left upper molar) Oral Opening: Greater than 3 - TEXTILE DYER LOC: Oriented TEXTILE DYER Motor: Normal RUE, Normal LUE, Normal RLE, Normal LLE, Normal Face TEXTILE DYER Sensory: Normal: RUE, LUE, RLE, LLE, Face - Cardiac Rhythm: Regular Murmur: None - Pulmonary Breath Sounds: bilateral Clear Respiratory Effort: Symmetrical Anesthesia Assess/Plan ASA Score: 2 Modified Stoney Scale for Level of Consciousness: Cooperative, oriented, and tranquil Anesthetic Plan: MAC Monitoring Plan: Standard Monitors
[2016-11-09] MEDS: 0.9 % Sodium Chloride 1,000 ML IVC SCH (14:08)
[2016-11-09] MEDS ORDERED: SODIUM CHLORIDE/NAHCO3/KCL/PEG 4,000 ML SOLN.RECON PO ONE (14:35)
[2016-11-09] MEDS ORDERED: *HR* OxyCODONE Immed Rel 5 MG TABLET PO PRN (14:45)
--- NOTE | 2016-11-09 15:53 | Internal Med Progress Note ---
Date of Encounter: 11/09/16 Time of Encounter: 09:45 - Assessment and plan (1) Pneumonia Current Visit: Yes Status: Suspected Assessment and plan: Blood cultures have been negative so far. Treating for both bacterial and aspiration pneumonia. Continue levofloxacin and Flagyl. No fevers. No tachycardia. Leukocyte count is normal. We will complete 10 day treatment course. Today is day 4. Moderate risk for complications. Patient not on medical DVT prophylaxis due to prolonged INR and low platelets. Qualifiers: Pneumonia type: due to Pneumococcus Laterality: bilateral Lung location: lower lobe of lung Qualified Code(s): J13 - Pneumonia due to Streptococcus pneumoniae (2) Bacterial enterocolitis Current Visit: Yes Status: Acute Assessment and plan: Stool positive for enteropathogenic Escherichia coli. Continue levofloxacin. (3) BRBPR (bright red blood per rectum) Current Visit: Yes Status: Acute Assessment and plan: Hemoglobin levels stable since yesterday posttransfusion. GI consulted. Patient underwent upper GI endoscopy today. Continue PPI (4) Pancreatitis Current Visit: Yes Status: Chronic Assessment and plan: Acute on chronic pancreatitis. Continue Creon. Advance diet as tolerated when patient is able to take oral diet. Pain control. Qualifiers: Chronicity: chronic Pancreatitis type: other Qualified Code(s): K86.1 - Other chronic pancreatitis (5) Suicidal behavior Current Visit: Yes Status: Ruled-out Qualifiers: Qualified Code(s): T14.91 - Suicide attempt (6) Tylenol overdose Current Visit: Yes Status: Acute Assessment and plan: Liver enzymes normal now. Bilirubin elevated but trending down and INR is still prolonged. Qualifiers: Encounter type: initial encounter Injury intent: accidental or unintentional Qualified Code(s): T39.1X1A - Poisoning by 4-Aminophenol derivatives, accidental (unintentional), initial encounter (7) Anemia Current Visit: Yes Status: Acute Assessment and plan: Acute on chronic anemia. Concern for GI bleed. Continue monitoring blood counts. Continue PPI. Patient has normal iron levels. Qualifiers: Anemia type: other cause Other causes of anemia: other cause, not classified Qualified Code(s): D64.89 - Other specified anemias - Subjective Interval history: Patient feels somewhat better today. Her pain has slightly improved with her current pain medication regimen. She was able to tolerate some diet yesterday. Currently nothing by mouth for possible upper GI endoscopy.. - Constitutional Vitals: Temp Pulse Resp BP Pulse Ox 98.2 F 80 16 114/82 93 11/09/16 15:36 11/09/16 15:36 11/09/16 15:36 11/09/16 15:36 11/09/16 15:36 General appearance: Present: cooperative, mild distress, A&O X 3, answers questions appropriately - Neck Neck exam general surgery: Present: supple, trachea midline. Absent: lymphadenopathy - Respiratory Respiratory exam: Present: CTAB. Absent: accessory muscle use, rales, rhonchi, wheezes - Cardiovascular Cardiovascular exam: Present: RRR, +S1, +S2. Absent: diastolic murmur, gallop, rubs, systolic murmur - GI/Abdominal GI/Abdominal exam: Present: normal bowel sounds, soft, tenderness (Epigastric), no peritoneal signs. Absent: distended - Extremities Exam Extremities exam: Present: warm, radial pulses palpable and symmetrical. Absent : calf tenderness, cyanotic, pedal edema - Neurological Exam Neurological exam: Present: alert, oriented X3, no focal deficits, strengths equal and symetr throughout. Absent: facial droop, speech deficit - Skin Skin exam: Present: dry, intact Internal Medicine: Result - Labs CBC & Chem 7: 11/09/16 03:40 11/08/16 04:59 Labs: Short CBC 11/09/16 Range/Units 03:40 WBC 4.9 (4.3-11.1) K/mcL Hgb 8.7 L (11.5-15.4) g/dL Hct 24.3 L (35.3-44.9) % Plt Count 64 L (140-400) K/mcL Neutrophils # 3.0 (1.6-8.9) K/mcL Liver Function 11/09/16 Range/Units 03:40 Total Bilirubin 2.5 H (0.2-1.2) mg/dL Direct Bilirubin 1.7 H (0.0-0.5) mg/dL AST 22 (5-34) Units/L ALT 36 (0-55) Units/L Alkaline Phosphatase 202 H (38-126) Units/L Albumin 1.8 L (3.5-5.0) g/dL - ABG Interpretation ABG results: PT/INR, D-dimer PT 20.5 Seconds (9.4-12.1) H 11/09/16 06:10 Consult Discharge Plan - Plan Referrals: Ani Hilton CNP [Primary Care Provider] -
[2016-11-09 17:26] LABS: Ferritin 296 ng/ml (5-204)
[2016-11-10] MEDS: *HR* HYDROmorphone (PF) 1 MG/ML SYRINGE IVP PRN ×5 (01:17→23:29)
[2016-11-10] MEDS: MetroNIDAZOLE 500 MG/100 ML 500 MG/100 ML BAG IVPB SCH ×3 (04:22→17:26)
[2016-11-10 05:10] LABS: INR 1.7; Prothrombin Time 18.2 Seconds (9.4-12.1)
[2016-11-10 05:12] LABS: Eosinophils % 1.6 %; Hemoglobin 9.1 g/dL (11.5-15.4); Immature Granulocytes % 0.7 % (0-4); Mean Corpuscular Volume 100.8 fL (83.0-100.0); Segmented Neutrophils % 45.7 %
[2016-11-10 05:14] LABS: Basophils % 0.5 %; Eosinophils # 0.1 K/mcL (0.0-0.6); Hematocrit 25.6 % (35.3-44.9); Immature Platelets 3.9 % (1.1-6.1); Lymphocytes # 1.8 K/mcL (0.6-4.6); Lymphocytes % 41.9 %; Mean Corpuscular HGB Conc 35.5 g/dL (31.6-35.5); Mean Corpuscular Hemoglobin 35.8 pg (28.0-33.3); Mean Platelet Volume 10.3 fL (9.4-12.4); Monocytes # 0.4 K/mcL (0.0-1.3); Monocytes % 9.6 %; Red Blood Count 2.54 M/mcL (3.82-4.97); Red Cell Distribution Width 20.8 % (11.5-14.5)
[2016-11-10 05:57] LABS: Folate 4.7 ng/mL (7.0-31.4)
[2016-11-10 05:58] LABS: Vitamin B12 > 2000 pg/mL (213-816)
[2016-11-10] MEDS: Pantoprazole 40 MG VIAL IVP SCH ×2 (05:59→17:25)
[2016-11-10] MEDS: 0.9 % Sodium Chloride w KCl 20 MEQ/1,000 ML MLS IVC SCH (05:59)
[2016-11-10 06:15] LABS: Platelet Count 73 K/mcL (140-400); Platelet Estimate Decreased (Normal); Reactive Lymphocytes Present (Not Present)
[2016-11-10] MEDS: Nicotine 21 MG PATCH.TD24 TD SCH (08:19)
[2016-11-10] MEDS: Levofloxacin 750 MG/150 ML 750 MG/150 ML BAG IVPB SCH (08:19)
[2016-11-10] MEDS: Insulin LISPRO 300 UNITS/3 ML VIAL SQ SCH ×4 (08:25→20:29)
[2016-11-10] MEDS ORDERED: Naloxone 0.4 MG/ML INJ IVP PRN (10:53)
[2016-11-10] MEDS: 0.9 % Sodium Chloride 1,000 ML IVC SCH (11:26)
[2016-11-10] MEDS: *HR* OxyCODONE Immed Rel 5 MG TABLET PO PRN ×2 (11:30→21:56)
[2016-11-10] MEDS: ALPRAZolam 1 MG TABLET PO PRN ×2 (11:31→20:29)
[2016-11-10] MEDS ORDERED: *HR* Propofol 200 MG/20 ML VIAL IVP ONE (13:54)
--- NOTE | 2016-11-10 21:03 | Internal Med Progress Note ---
Date of Encounter: 11/10/16 Time of Encounter: 10:00 - Assessment and plan (1) Pancreatitis Current Visit: Yes Status: Chronic Assessment and plan: Acute on chronic pancreatitis. Continue Creon. Advance diet as tolerated when patient is able to take oral diet. Pain control. Qualifiers: Chronicity: chronic Pancreatitis type: other Qualified Code(s): K86.1 - Other chronic pancreatitis (2) DVT prophylaxis Current Visit: No Status: Acute Assessment and plan: SCD (3) Tylenol overdose Current Visit: Yes Status: Acute Qualifiers: Encounter type: initial encounter Injury intent: accidental or unintentional Qualified Code(s): T39.1X1A - Poisoning by 4-Aminophenol derivatives, accidental (unintentional), initial encounter (4) BRBPR (bright red blood per rectum) Current Visit: Yes Status: Acute Assessment and plan: Hemoglobin levels stable since posttransfusion. GI consulted. Colonoscopy showed hemorrhoids, no other significant finding. Continue closely monitor H&H. (5) Pneumonia Current Visit: Yes Status: Suspected Assessment and plan: Blood cultures have been negative so far. Treating for both bacterial and aspiration pneumonia. Continue levofloxacin and Flagyl. No fevers. No tachycardia. Leukocyte count is normal. We will complete 10 day treatment course. Today is day 5. Moderate risk for complications. Patient not on medical DVT prophylaxis due to prolonged INR and low platelets. Qualifiers: Pneumonia type: due to Pneumococcus Laterality: bilateral Lung location: lower lobe of lung Qualified Code(s): J13 - Pneumonia due to Streptococcus pneumoniae (6) Anemia Current Visit: Yes Status: Acute Assessment and plan: Acute on chronic anemia. Continue monitoring blood counts. Continue PPI. Patient has normal iron levels. Qualifiers: Anemia type: other cause Other causes of anemia: other cause, not classified Qualified Code(s): D64.89 - Other specified anemias - Time Spent With Patient 25 - 35 minutes - Subjective Interval history: Patient is a 46-year-old female admitted for Tylenol overdose. Patient was also found pneumonia and rectal bleeding. I saw and examined the patient today. Patient shows anxious for colonoscopy, otherwise she is stable. Denies abdominal pain, dizziness, or shortness of breath. - Constitutional Vitals: Temp Pulse Resp BP Pulse Ox 97.8 F 82 16 134/74 99 11/10/16 16:00 11/10/16 16:00 11/10/16 16:00 11/10/16 16:00 11/10/16 16:00 General appearance: Present: cooperative, mild distress, A&O X 3, answers questions appropriately - Head Head exam: Present: atraumatic, normocephalic - Eye Eye exam: Present: PERRL, conjuntiva pink, sclera anicteric Pupils: Present: PERRL - Neck Neck exam general surgery: Present: supple, trachea midline. Absent: lymphadenopathy - Respiratory Respiratory exam: Present: CTAB. Absent: accessory muscle use, rales, rhonchi, wheezes - Cardiovascular Cardiovascular exam: Present: RRR, +S1, +S2. Absent: diastolic murmur, gallop, rubs, systolic murmur - GI/Abdominal GI/Abdominal exam: Present: normal bowel sounds, soft, no peritoneal signs. Absent: distended, tenderness - Extremities Exam Extremities exam: Present: warm, radial pulses palpable and symmetrical. Absent : calf tenderness, cyanotic, pedal edema - Neurological Exam Neurological exam: Present: CN II-XII intact, oriented X3, no focal deficits. Absent: pronater drift, facial droop, speech deficit - Skin Skin exam: Present: dry, intact Internal Medicine: Result - Labs CBC & Chem 7: 11/10/16 04:45 11/08/16 04:59 Labs: Short CBC 11/10/16 Range/Units 04:45 WBC 4.3 (4.3-11.1) K/mcL Hgb 9.1 L (11.5-15.4) g/dL Hct 25.6 L (35.3-44.9) % Plt Count 73 L (140-400) K/mcL Neutrophils # 2.0 (1.6-8.9) K/mcL - ABG Interpretation ABG results: PT/INR, D-dimer PT 18.2 Seconds (9.4-12.1) H 11/10/16 04:45 Consult Discharge Plan - Plan Referrals: Ani Hilton, [employer] [Primary Care Provider] -
[2016-11-11] MEDS: 0.9 % Sodium Chloride w KCl 20 MEQ/1,000 ML MLS IVC SCH ×2 (00:56→10:39)
[2016-11-11] MEDS: MetroNIDAZOLE 500 MG/100 ML 500 MG/100 ML BAG IVPB SCH ×3 (02:05→18:16)
[2016-11-11] MEDS: *HR* HYDROmorphone (PF) 1 MG/ML SYRINGE IVP PRN ×2 (03:41→08:35)
[2016-11-11 04:03] LABS: Basophils % 0.5 %; Eosinophils # 0.1 K/mcL (0.0-0.6); Hematocrit 26.9 % (35.3-44.9); Hemoglobin 9.3 g/dL (11.5-15.4); Immature Granulocytes % 1.2 % (0-4); Immature Platelets 4.8 % (1.1-6.1); Lymphocytes # 2.3 K/mcL (0.6-4.6); Lymphocytes % 38.3 %; Mean Corpuscular HGB Conc 34.6 g/dL (31.6-35.5); Mean Corpuscular Hemoglobin 35.4 pg (28.0-33.3); Mean Corpuscular Volume 102.3 fL (83.0-100.0); Mean Platelet Volume 11.1 fL (9.4-12.4); Monocytes # 0.9 K/mcL (0.0-1.3); Monocytes % 14.6 %; Neutrophils # 2.7 K/mcL (1.6-8.9); Red Blood Count 2.63 M/mcL (3.82-4.97); Segmented Neutrophils % 44.4 %
[2016-11-11 04:08] LABS: Platelet Count 91 K/mcL (140-400)
[2016-11-11 04:53] LABS: INR 1.7; Prothrombin Time 18.2 Seconds (9.4-12.1)
[2016-11-11 05:19] LABS: Macrocytosis Present (Not Present)
[2016-11-11 05:20] LABS: Anisocytosis 1+ (Not Present); Platelet Estimate Decreased (Normal)
[2016-11-11 05:21] LABS: Poikilocytosis 1+ (Not Present); Polychromasia 1+ (Not Present)
[2016-11-11] MEDS: Pantoprazole 40 MG VIAL IVP SCH (05:25)
[2016-11-11 06:40] LABS: Alanine Aminotransferase 24 Units/L (0-55); Albumin 1.9 g/dL (3.5-5.0); Albumin/Globulin Ratio 0.6 (1.1-2.2); Alkaline Phosphatase 195 Units/L (38-126); Aspartate Amino Transferase 20 Units/L (5-34); BUN/Creatinine Ratio 4 (6-26); Bilirubin,Total 1.7 mg/dL (0.2-1.2); Blood Urea Nitrogen < 2 mg/dL (7-20); Calcium 8.1 mg/dL (8.6-10.8); Carbon Dioxide 24 mEq/L (19-29); Chloride 108 mEq/L (98-109); Globulin 3.2 g/dL (2.4-3.5); Glucose 92 mg/dL (70-99); Osmolality,Calculated 282 (280-300); Sodium 138 mEq/L (136-145); Total Protein 5.1 g/dL (6.0-8.3); eGFR For African Americans > 60 (> 60); eGFR For Non-African Americans > 60 (> 60)
[2016-11-11] MEDS: Nicotine 21 MG PATCH.TD24 TD SCH (08:22)
[2016-11-11] MEDS: ALPRAZolam 1 MG TABLET PO PRN (08:22)
[2016-11-11] MEDS: Insulin LISPRO 300 UNITS/3 ML VIAL SQ SCH ×4 (08:24→21:52)
[2016-11-11] MEDS: Levofloxacin 750 MG/150 ML 750 MG/150 ML BAG IVPB SCH (08:25)
[2016-11-11] MEDS: *HR* OxyCODONE Immed Rel 5 MG TABLET PO PRN ×2 (10:02→16:12)
[2016-11-11] MEDS: 0.9 % Sodium Chloride 1,000 ML IVC SCH (10:38)
[2016-11-11] MEDS ORDERED: *HR* HYDROmorphone (PF) 1 MG/ML SYRINGE IVP PRN (13:04)
[2016-11-11] MEDS: Gabapentin 400 MG CAPSULE PO SCH ×2 (15:47→21:46)
--- NOTE | 2016-11-11 17:51 | Internal Med Progress Note ---
Date of Encounter: 11/11/16 Time of Encounter: 10:00 - Assessment and plan (1) Pancreatitis Current Visit: Yes Status: Chronic Assessment and plan: Acute on chronic pancreatitis. Continue Creon. Advance diet as tolerated when patient is able to take oral diet. Pain control. Qualifiers: Chronicity: chronic Pancreatitis type: other Qualified Code(s): K86.1 - Other chronic pancreatitis (2) DVT prophylaxis Current Visit: No Status: Acute Assessment and plan: SCD (3) Tylenol overdose Current Visit: Yes Status: Acute Assessment and plan: Liver enzymes normal now. Bilirubin elevated but trending down and INR is still prolonged. Keep monitor liver function and PT/INR Qualifiers: Encounter type: initial encounter Injury intent: accidental or unintentional Qualified Code(s): T39.1X1A - Poisoning by 4-Aminophenol derivatives, accidental (unintentional), initial encounter (4) BRBPR (bright red blood per rectum) Current Visit: Yes Status: Acute Assessment and plan: Hemoglobin levels stable since posttransfusion. GI consulted. Colonoscopy showed hemorrhoids, no other significant finding. Continue closely monitor H&H. (5) Pneumonia Current Visit: Yes Status: Suspected Assessment and plan: Blood cultures have been negative so far. Treating for both bacterial and aspiration pneumonia. Continue levofloxacin and Flagyl. No fevers. No tachycardia. Leukocyte count is normal. We will complete 10 day treatment course. Today is day 6. Moderate risk for complications. Patient not on medical DVT prophylaxis due to prolonged INR and low platelets. Qualifiers: Pneumonia type: due to Pneumococcus Laterality: bilateral Lung location: lower lobe of lung Qualified Code(s): J13 - Pneumonia due to Streptococcus pneumoniae (6) Anemia Current Visit: Yes Status: Acute Assessment and plan: Acute on chronic anemia. Continue monitoring blood counts. Continue PPI. Patient has normal iron levels. Qualifiers: Anemia type: other cause Other causes of anemia: other cause, not classified Qualified Code(s): D64.89 - Other specified anemias (7) Back pain Current Visit: Yes Status: Acute Assessment and plan: CT T-spine shows old T11 compression fracture. Continue pain control. May consider spinal surgeon consult in AM. Qualifiers: Back pain location: thoracic back pain Chronicity: chronic Back pain laterality: midline Qualified Code(s): M54.6 - Pain in thoracic spine; G89.29 - Other chronic pain - Time Spent With Patient 25 - 35 minutes - Subjective Interval history: Patient is a 46-year-old female admitted for Tylenol overdose. Patient was also found pneumonia and rectal bleeding. I saw and examined the patient today. Patient shows anxious and emotional, compliant of our prior back pain. CT T-spine has been done, shows old T11 compression fracture. Will continue pain management. Pt denies abdominal pain , dizziness, or shortness of breath. - Constitutional Vitals: Temp Pulse Resp BP Pulse Ox 98.5 F 97 16 134/73 97 11/11/16 15:41 11/11/16 15:41 11/11/16 15:41 11/11/16 15:41 11/11/16 15:41 General appearance: Present: cooperative, mild distress, A&O X 3, answers questions appropriately - Head Head exam: Present: atraumatic, normocephalic - Eye Eye exam: Present: PERRL, conjuntiva pink, sclera anicteric Pupils: Present: PERRL - Neck Neck exam general surgery: Present: supple, trachea midline. Absent: lymphadenopathy - Respiratory Respiratory exam: Present: CTAB. Absent: accessory muscle use, rales, rhonchi, wheezes - Cardiovascular Cardiovascular exam: Present: RRR, +S1, +S2. Absent: diastolic murmur, gallop, rubs, systolic murmur - GI/Abdominal GI/Abdominal exam: Present: normal bowel sounds, soft, no peritoneal signs. Absent: distended, tenderness - Extremities Exam Extremities exam: Present: tenderness (On mid back.), warm, radial pulses palpable and symmetrical. Absent: calf tenderness, cyanotic, pedal edema - Neurological Exam Neurological exam: Present: CN II-XII intact, oriented X3, no focal deficits. Absent: pronater drift, facial droop, speech deficit - Skin Skin exam: Present: dry, intact Internal Medicine: Result - Labs CBC & Chem 7: 11/11/16 03:51 11/11/16 05:26 Labs: Short CBC 11/11/16 Range/Units 03:51 WBC 6.0 (4.3-11.1) K/mcL Hgb 9.3 L (11.5-15.4) g/dL Hct 26.9 L (35.3-44.9) % Plt Count 91 L (140-400) K/mcL Neutrophils # 2.7 (1.6-8.9) K/mcL BMP 11/11/16 05:26 Sodium 138 Potassium 4.0 Chloride 108 Carbon Dioxide 24 BUN < 2 L Creatinine 0.56 L Glucose 92 Calcium 8.1 L Liver Function 11/11/16 Range/Units 05:26 Total Bilirubin 1.7 H (0.2-1.2) mg/dL AST 20 (5-34) Units/L ALT 24 (0-55) Units/L Alkaline Phosphatase 195 H (38-126) Units/L Albumin 1.9 L (3.5-5.0) g/dL - ABG Interpretation ABG results: PT/INR, D-dimer PT 18.2 Seconds (9.4-12.1) H 11/11/16 04:22 - Impressions Impressions Thoracic Spine CT 11/11/16 10:45 IMPRESSION: 1. No acute thoracic spine abnormality. Chronic appearing T11 vertebral body compression fracture. 2. Right upper lobe ground-glass densities with interlobular septal thickening compatible with pulmonary edema or atypical infection. D/ / Mara Lowe MD / Mara Lowe MD Interpreting Provider: Mara Lowe MD - VTE Documentation of Mechanical Device: Graduated compression elastic hosiery Consult Discharge Plan - Plan Referrals: Ani Hilton, TUBE P[employer]HER [Primary Care Provider] -
[2016-11-12] MEDS: MetroNIDAZOLE 500 MG/100 ML 500 MG/100 ML BAG IVPB SCH ×2 (01:10→09:54)
[2016-11-12] MEDS: *HR* OxyCODONE Immed Rel 5 MG TABLET PO PRN ×4 (01:20→22:15)
[2016-11-12 04:35] LABS: Basophils % 0.5 %; Eosinophils % 0.2 %; Hematocrit 28.2 % (35.3-44.9); Hemoglobin 9.6 g/dL (11.5-15.4); Immature Granulocytes % 1.1 % (0-4); Immature Platelets 4.3 % (1.1-6.1); Lymphocytes % 34.7 %; Mean Corpuscular Hemoglobin 34.8 pg (28.0-33.3); Mean Corpuscular Volume 102.2 fL (83.0-100.0); Mean Platelet Volume 10.3 fL (9.4-12.4); Monocytes # 0.9 K/mcL (0.0-1.3); Monocytes % 16.2 %; Neutrophils # 2.7 K/mcL (1.6-8.9); Red Blood Count 2.76 M/mcL (3.82-4.97); Red Cell Distribution Width 21.7 % (11.5-14.5); Segmented Neutrophils % 47.3 %
[2016-11-12 05:17] LABS: Platelet Count 99 K/mcL (140-400)
[2016-11-12] MEDS: ALPRAZolam 1 MG TABLET PO PRN ×2 (05:30→21:27)
[2016-11-12 05:46] LABS: Platelet Estimate Marked Decrease (Normal)
[2016-11-12] MEDS: Gabapentin 400 MG CAPSULE PO SCH ×3 (08:14→21:26)
[2016-11-12] MEDS: Nicotine 21 MG PATCH.TD24 TD SCH (08:15)
[2016-11-12] MEDS: Levofloxacin 750 MG/150 ML 750 MG/150 ML BAG IVPB SCH (08:16)
[2016-11-12] MEDS: Insulin LISPRO 300 UNITS/3 ML VIAL SQ SCH ×4 (08:26→21:14)
[2016-11-12 09:00] LABS: BUN/Creatinine Ratio 3 (6-26); Calcium 8.2 mg/dL (8.6-10.8); Carbon Dioxide 24 mEq/L (19-29); Chloride 106 mEq/L (98-109); Glucose 182 mg/dL (70-99); Magnesium 1.3 mg/dL (1.6-2.6); Osmolality,Calculated 285 (280-300); Potassium 3.8 mEq/L (3.5-4.5); Sodium 137 mEq/L (136-145); eGFR For African Americans > 60 (> 60); eGFR For Non-African Americans > 60 (> 60)
[2016-11-12 09:02] LABS: Blood Urea Nitrogen < 2 mg/dL (7-20)
[2016-11-12] MEDS: *HR* HYDROmorphone (PF) 1 MG/ML SYRINGE IVP PRN ×2 (10:12→14:50)
[2016-11-12] MEDS: Magic Mouthwash 10 ML UD Cup PO SCH ×2 (12:17→17:23)
[2016-11-12] MEDS ORDERED: GI Cocktail 40 ML EACH PO PRN (14:12)
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
[2016-11-12] MEDS: metroNIDAZOLE 500 MG TABLET PO SCH (17:22)
[2016-11-12] MEDS ORDERED: 0.9 % Sodium Chloride 500 ML IVC ONE (17:36)
--- NOTE | 2016-11-12 18:01 | Internal Med Progress Note ---
Date of Encounter: 11/12/16 Time of Encounter: 09:00 - Assessment and plan (1) Pancreatitis Current Visit: Yes Status: Chronic Assessment and plan: Acute on chronic pancreatitis. Continue Creon. Advance diet as tolerated when patient is able to take oral diet. Pain control. Qualifiers: Chronicity: chronic Pancreatitis type: other Qualified Code(s): K86.1 - Other chronic pancreatitis (2) DVT prophylaxis Current Visit: No Status: Acute Assessment and plan: SCD (3) Tylenol overdose Current Visit: Yes Status: Acute Assessment and plan: Liver enzymes normal now. Bilirubin elevated but trending down and INR is still prolonged. Keep monitor liver function and PT/INR Qualifiers: Encounter type: initial encounter Injury intent: accidental or unintentional Qualified Code(s): T39.1X1A - Poisoning by 4-Aminophenol derivatives, accidental (unintentional), initial encounter (4) BRBPR (bright red blood per rectum) Current Visit: Yes Status: Acute Assessment and plan: Hemoglobin levels stable since posttransfusion. GI consulted. Colonoscopy showed hemorrhoids, no other significant finding. Continue closely monitor H&H. (5) Pneumonia Current Visit: Yes Status: Suspected Assessment and plan: Blood cultures have been negative so far. Treating for both bacterial and aspiration pneumonia. Continue levofloxacin and Flagyl. No fevers. No tachycardia. Leukocyte count is normal. We will complete 10 day treatment course. Today is day 7. Moderate risk for complications. Patient not on medical DVT prophylaxis due to prolonged INR and low platelets. Qualifiers: Pneumonia type: due to Pneumococcus Laterality: bilateral Lung location: lower lobe of lung Qualified Code(s): J13 - Pneumonia due to Streptococcus pneumoniae (6) Anemia Current Visit: Yes Status: Acute Assessment and plan: Acute on chronic anemia. Continue monitoring blood counts. Continue PPI. Patient has normal iron levels. Qualifiers: Anemia type: other cause Other causes of anemia: other cause, not classified Qualified Code(s): D64.89 - Other specified anemias (7) Back pain Current Visit: Yes Status: Acute Assessment and plan: CT T-spine shows old T11 compression fracture. Continue pain control. Spinal surgeon consult appreciated Qualifiers: Back pain location: thoracic back pain Chronicity: chronic Back pain laterality: midline Qualified Code(s): M54.6 - Pain in thoracic spine; G89.29 - Other chronic pain - Time Spent With Patient 25 - 35 minutes - Subjective Interval history: Patient is a 46-year-old female admitted for Tylenol overdose. Patient was also found pneumonia and rectal bleeding. I saw and examined the patient today. Patient shows anxious and emotional, compliant of mid back pain and whole body pain. CT T-spine has been done, shows old T11 compression fracture. Will continue pain management. Pain management consult appreciated. - Constitutional Vitals: Temp Pulse Resp BP Pulse Ox 97.8 F 85 18 87/65 97 11/12/16 16:00 11/12/16 16:00 11/12/16 16:00 11/12/16 16:00 11/12/16 17:21 General appearance: Present: cooperative, mild distress, A&O X 3, answers questions appropriately - Head Head exam: Present: atraumatic, normocephalic - Eye Eye exam: Present: PERRL, conjuntiva pink, sclera anicteric Pupils: Present: PERRL - Neck Neck exam general surgery: Present: supple, trachea midline. Absent: lymphadenopathy - Respiratory Respiratory exam: Present: CTAB. Absent: accessory muscle use, rales, rhonchi, wheezes - Cardiovascular Cardiovascular exam: Present: RRR, +S1, +S2. Absent: diastolic murmur, gallop, rubs, systolic murmur - GI/Abdominal GI/Abdominal exam: Present: normal bowel sounds, soft, no peritoneal signs. Absent: distended, tenderness - Extremities Exam Extremities exam: Present: warm, radial pulses palpable and symmetrical. Absent : calf tenderness, cyanotic, pedal edema - Neurological Exam Neurological exam: Present: CN II-XII intact, oriented X3, no focal deficits. Absent: pronater drift, facial droop, speech deficit - Skin Skin exam: Present: dry, intact Internal Medicine: Result - Labs CBC & Chem 7: 11/12/16 04:00 11/12/16 04:00 Labs: Short CBC 11/12/16 Range/Units 04:00 WBC 5.7 (4.3-11.1) K/mcL Hgb 9.6 L (11.5-15.4) g/dL Hct 28.2 L (35.3-44.9) % Plt Count 99 L (140-400) K/mcL Neutrophils # 2.7 (1.6-8.9) K/mcL BMP 11/12/16 04:00 Sodium 137 Potassium 3.8 Chloride 106 Carbon Dioxide 24 BUN < 2 L Creatinine 0.65 Glucose 182 H Calcium 8.2 L - ABG Interpretation ABG results: PT/INR, D-dimer PT 18.2 Seconds (9.4-12.1) H 11/11/16 04:22 - VTE Documentation of Mechanical Device: Graduated compression elastic hosiery Consult Discharge Plan - Plan Referrals: Ani Hilton, [facility] [Primary Care Provider] - 11/18/16 1:15 pm
[2016-11-13] MEDS: *HR* OxyCODONE Immed Rel 5 MG TABLET PO PRN ×3 (02:17→11:38)
[2016-11-13] MEDS: metroNIDAZOLE 500 MG TABLET PO SCH ×2 (02:18→09:58)
[2016-11-13 04:29] LABS: INR 1.6; Prothrombin Time 17.6 Seconds (9.4-12.1)
[2016-11-13 04:37] LABS: Nucleated Red Blood Cells 0.4 /100 WBC (0)
[2016-11-13 04:39] LABS: Alanine Aminotransferase 16 Units/L (0-55); Albumin/Globulin Ratio 0.6 (1.1-2.2); Alkaline Phosphatase 158 Units/L (38-126); Aspartate Amino Transferase 12 Units/L (5-34); BUN/Creatinine Ratio 3 (6-26); Bilirubin,Total 1.1 mg/dL (0.2-1.2); Calcium 8.2 mg/dL (8.6-10.8); Carbon Dioxide 29 mEq/L (19-29); Chloride 105 mEq/L (98-109); Globulin 3.1 g/dL (2.4-3.5); Glucose 130 mg/dL (70-99); Hematocrit 27.5 % (35.3-44.9); Immature Platelets 5.1 % (1.1-6.1); Mean Corpuscular HGB Conc 32.7 g/dL (31.6-35.5); Mean Corpuscular Hemoglobin 34.5 pg (28.0-33.3); Mean Corpuscular Volume 105.4 fL (83.0-100.0); Mean Platelet Volume 10.7 fL (9.4-12.4); Neutrophils # 1.5 K/mcL (1.6-8.9); Osmolality,Calculated 282 (280-300); Platelet Count 101 K/mcL (140-400); Red Blood Count 2.61 M/mcL (3.82-4.97); Red Cell Distribution Width 21.7 % (11.5-14.5); Sodium 137 mEq/L (136-145); Total Protein 4.9 g/dL (6.0-8.3); eGFR For African Americans > 60 (> 60); eGFR For Non-African Americans > 60 (> 60)
[2016-11-13 04:50] VITALS: BP 91/54
[2016-11-13 04:52] LABS: Albumin 1.8 g/dL (3.5-5.0); Blood Urea Nitrogen < 2 mg/dL (7-20); Potassium 4.1 mEq/L (3.5-4.5)
[2016-11-13 05:51] LABS: Lymphocytes # 2.9 K/mcL (0.6-4.6); Monocytes # 0.7 K/mcL (0.0-1.3); Platelet Estimate Slight Decrease (Normal)
[2016-11-13 05:52] LABS: Macrocytosis Present (Not Present); Microcytosis Present (Not Present); Poikilocytosis 1+ (Not Present); Polychromasia 1+ (Not Present)
[2016-11-13 05:53] LABS: Target Cells 1+ (Not Present)
[2016-11-13 05:54] LABS: Anisocytosis 1+ (Not Present)
[2016-11-13] MEDS: Gabapentin 400 MG CAPSULE PO SCH (07:59)
[2016-11-13] MEDS: Nicotine 21 MG PATCH.TD24 TD SCH (07:59)
[2016-11-13] MEDS: Insulin LISPRO 300 UNITS/3 ML VIAL SQ SCH ×2 (08:02→11:38)
[2016-11-13] MEDS: Magic Mouthwash 10 ML UD Cup PO SCH ×2 (08:02→11:38)
[2016-11-13] MEDS ORDERED: levoFLOXacin 750 MG TABLET PO SCH (09:00)
--- NOTE | 2016-11-13 10:07 | Discharge Summary ---
Date of Encounter: 11/13/16 Time of Encounter: 09:00 - Discharge Diagnosis (1) Pancreatitis Priority: Secondary Status: Chronic Qualifiers: Chronicity: chronic Pancreatitis type: other Qualified Code(s): K86.1 - Other chronic pancreatitis (2) DVT prophylaxis Priority: Secondary Status: Acute (3) Tylenol overdose Priority: Primary Status: Acute Qualifiers: Encounter type: initial encounter Injury intent: accidental or unintentional Qualified Code(s): T39.1X1A - Poisoning by 4-Aminophenol derivatives, accidental (unintentional), initial encounter (4) BRBPR (bright red blood per rectum) Priority: Primary Status: Acute (5) Pneumonia Priority: Primary Status: Suspected Qualifiers: Pneumonia type: due to Pneumococcus Laterality: bilateral Lung location: lower lobe of lung Qualified Code(s): J13 - Pneumonia due to Streptococcus pneumoniae (6) Anemia Priority: Secondary Status: Acute Qualifiers: Anemia type: other cause Other causes of anemia: other cause, not classified Qualified Code(s): D64.89 - Other specified anemias (7) Back pain Priority: Primary Status: Acute Qualifiers: Back pain location: thoracic back pain Chronicity: chronic Back pain laterality: midline Qualified Code(s): M54.6 - Pain in thoracic spine; G89.29 - Other chronic pain - Discharge Medications Prescriptions: levoFLOXacin [Levaquin] 750 mg PO DAILY #5 tab metroNIDAZOLE [Flagyl] 500 mg PO Q8H #15 tab Nicotine Patch [Nicoderm] 21 mg TD DAILY #14 Simethicone [Gas-X] 80 mg PO TID PRN #14 PRN Reason: Dyspepsia Home Medications: Omeprazole [PriLOSEC] 40 mg PO DAILY 03/31/15 [History] Paroxetine [Paxil] 60 mg PO DAILY 03/31/15 [History] Ondansetron [Zofran] 8 mg PO Q6H PRN 11/29/15 [History] Albuterol Sulfate [Ventolin Hfa] 2 puff IH Q4H PRN 10/09/16 [History] Ascorbate Calcium [Vitamin C] 500 mg PO DAILY 10/09/16 [History] Pramipexole [Mirapex] 2 mg PO HS PRN 10/09/16 [History] Ranitidine HCl [Acid Network Support] 150 mg PO HS 10/09/16 [History] Calcium Carbonate [Tums] 500 mg PO DAILY 10/11/16 [Rx] Gabapentin [Neurontin] 800 mg PO TID 11/13/16 [Rx] Naproxen [Naprosyn] 250 mg PO BID PRN #14 tablet 11/13/16 [Rx] Nicotine Patch [Nicoderm] 21 mg TD DAILY #14 11/13/16 [Rx] Simethicone [Gas-X] 80 mg PO TID PRN #14 11/13/16 [Rx] levoFLOXacin [Levaquin] 750 mg PO DAILY #5 tab 11/13/16 [Rx] metroNIDAZOLE [Flagyl] 500 mg PO Q8H #15 tab 11/13/16 [Rx] Allergies/Adverse Reactions: 3 Allergy/AdvReac Type Severity Reaction Status Date / Time promethazine [From Phenergan] Allergy Seizure Verified 10/07/16 12:55 Procedures/tests Complete & Pending: Procedures Performed prior 72 hours Category Date Time Status CT thoracic spine wo con [CT] Stat Cat Scan 11/11/16 10:45 Completed EV echocardiogram Routine Y 11/10/16 21:19 Completed - Notes to Outpatient Provider Please finish 5 more days abx levaquin and flagyl. Date of admission: 11/06/16 02:46 Primary care physician: Ani Hilton CNP Consults: 11/06/16 08:53 Consult to Senior Property Accountant [CONS] Routine Reason for SW Consult: Possible overdose 11/07/16 17:12 Consult to Gastroenterology [CONS] Routine Consulting Provider: Jamie Collins Reason for Consult: Anemia, epigastric pain Call Completed: No 11/11/16 10:20 consult to lottery sales clerk [Consult to Nutrition] [CONS] Routine Comment: Consulting Provider: NUTRITION Reason for Dietary Consult: PO Supplementation 11/11/16 11:43 Consult to Occupational Therapy [CONS] Routine Comment: Evaluate, develop and implement POC Reason for Consult: DISCHARGE PLANNING Consult to Physical Therapy [CONS] Routine Comment: Evaluate, develop and implement POC Reason for Consult: DISCHARGE PLANNING 11/12/16 08:19 Consult to Orthopedic Surgery [CONS] Routine Consulting Provider: Tab Ontiveros Jr Reason for Consult: T11 compression Fx Call Completed: Yes Discharging clinician: Cornelia Linares Anticipated date of discharge: 11/13/16 - Patient Status Disposition: Home, Self-Care Condition: Fair Functional capacity at discharge: independent ambulation Overall status at discharge: patient is back to baseline - Discharge Instructions Follow Up With: Ani Hilton CNP [Primary Care Provider] - 11/18/16 1:15 pm Nash Suarez DO [Partnered Physician] - 11/18/16 - Diet and Activity Activity: increase activity as tolerated Diet: advance to your usual diet Interval History: HPI: Ms. Chi is a 46 year old female presents to the emergency room today after her son was concerned about her taking too much Tylenol. Over the past 4 days patient took approximately 400 pills or 500 mg of Tylenol. That is approximately 200 g of Tylenol. She has not taken Tylenol approximately in the past 24 hours (tylenol level on arrival 30). She mentioned that she was taking approximately 4 pills every hour over the past 4 days. She started having epigastric and right upper quadrant pain nausea vomiting. She also noticed bright red blood rectum. Her son was concerned about taking too much time also brought her to the emergency room. She denies any other coingestion. 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 Bilirubin was 3.4, INR was 1.9, pH 7.31. Hospital course: Ms. Chi is a 46 year old female admitted for Tylenol overdose. Patient took too much Tylenol because of back pain. Patient was placed on close monitoring. Psych consult called and saw patient, patient denies suicidal ideas. Patient was found rectal bleeding and low hemoglobin. GI consult was called and EGD and a colonoscopy has been done. Patient was found hemorrhoids, otherwise unremarkable. Patient was given transfusion for low hemoglobin and her hemoglobin was stable after transfusion. Patient complain mid thoracic back pain, CT T-spine shows T11 fracture. Spinal surgeon consult was called, no indication for surgery now, will arrange patient to follow up with pain management clinic. Patient was found having pneumonia, minimal symptoms, improved after treatment. We will continue by mouth antibiotic to finish a 10 day course. I saw and examined patient today. She is awake alert, oriented 3. Vitals are stable. Minimal pain controlled by pain medication. Patient still have bilateral leg swelling, which is believed caused by hypoalbuminemia which is caused by liver dysfunction, and assume to recover after liver function recovers. Echocardiogram shows negative for CHF. Time spent discussing smoking cessation with patient: 3 to 10 minutes - Time Spent with Patient Total time spent providing and/or coordinating discharge services: 40 min Greater than 30 minutes - Constitutional Vitals: Temp Pulse Resp BP Pulse Ox 98.5 F 90 16 91/54 98 11/13/16 04:00 11/13/16 04:00 11/13/16 04:00 11/13/16 04:00 11/13/16 07:54 General appearance: Present: cooperative, A&O X 3, no acute distress, answers questions appropriately - Head Head exam: Present: atraumatic, normocephalic - Eye Eye exam: Present: PERRL, conjuntiva pink, sclera anicteric Pupils: Present: PERRL - Neck Neck exam general surgery: Present: supple, trachea midline. Absent: lymphadenopathy - Respiratory Respiratory exam: Present: CTAB. Absent: accessory muscle use, rales, rhonchi, wheezes - Cardiovascular Cardiovascular exam: Present: RRR, +S1, +S2. Absent: diastolic murmur, gallop, rubs, systolic murmur - GI/Abdominal GI/Abdominal exam: Present: normal bowel sounds, soft, no peritoneal signs. Absent: distended, tenderness - Extremities Exam Extremities exam: Present: tenderness (On midback), warm, radial pulses palpable and symmetrical. Absent: calf tenderness, cyanotic, pedal edema - Neurological Exam Neurological exam: Present: CN II-XII intact, oriented X3, no focal deficits. Absent: pronater drift, facial droop, speech deficit - Skin Skin exam: Present: dry, intact - VTE Documentation of Mechanical Device: Graduated compression elastic hosiery
[2016-11-13] MEDS: Ondansetron 4 MG/2 ML VIAL IVP PRN (11:37)
[2016-11-13] MEDS: ALPRAZolam 1 MG TABLET PO PRN (12:41)
== END 2016-11-13 13:20 | disposition home or self-care (01) | DRG 812 ==
LOC: EMEROO 19:55 → 3BNU 19:55 → 2NENU 23:52 → SUATTDRO 11-06 02:46 → 2NENU 11-06 21:55
PROVIDERS: ADMIT Nurse Practitioner Family; ATTEND Internal Medicine
PROC: ENDOEBX (2016-11-09 14:00)